=== PATIENT | male | born 1970 | race Caucasian/White ===

== ENCOUNTER 2021-11-17 04:11 | Emergency (ER) | payer SELFPAY ==
--- NOTE | ~2021-11-17 | CT_ITS ---
EXAMINATION: CT abd pelvis lumbar wo con DATE: 11/17/2021 06:26 INDICATION: Right lower quadrant pain. TECHNIQUE: Computed tomography (CT) of the abdomen, pelvis and lumbar spine was performed without int ravenous contrast. The dose-length product was 1428.56 mGy-cm. Automated exposure control and iterative reconstruction technique were employed. COMPARISON: None FINDINGS: Abdomen/pelvis: There is dependent atelectasis. Heart size normal. There are gallstones. The liver, s pleen, pancreas, adrenal glands and kidneys are unremarkable. Bladder is unremarkable. Nonobstructive bowel gas pattern. Normal appendix. No free air or free fluid. Small hiatal hernia. Accessory splenu le noted. No significant vascular abnormality. No lymphadenopathy. Lumbar spine: There is severe multilevel facet hypertrophy as well as ventral osteophyte formation and disc narrowi ng at all lumbar levels creating multilevel central canal and neural foraminal stenosis. There is mil d dextrocurvature of the lumbar spine. There is neural foraminal and central canal stenosis at L1-2 t hrough L5-S1. No acute fracture or traumatic malalignment. IMPRESSION: 1. No acute abnormality of the abdomen, pelvis or lumbar spine. 2: Severe lumbar spondylosis with multilevel neural foraminal and central canal stenosis. 3: Cholelithiasis. 4: Small hiatal hernia. Reviewed, dictated and finalized at location A. IMPRESSION: 1. No acute abnormality of the abdomen, pelvis or lumbar spine. 2: Severe lumbar spondylosis with multilevel neural foraminal and central lisa l stenosis. 3: Cholelithiasis. 4: Small hiatal hernia.
[2021-11-17 04:41] VITALS: BP 166/94; PULSE 71; RESP 17; TEMP 36.5; O2SAT 96
--- NOTE | 2021-11-17 05:15 | ED.GENADULT ---
HPI - General Adult General Chief complaint: Back Pain/Injury Stated complaint: back pain Time Seen by Provider: 11/17/21 05:00 History of Present Illness HPI narrative: the patient is a 51-year-old male with onset of right-sided lower back pain radiating to the right buttocks area into the right flank for the last 2 days, sudden onset, not preceded by any heavy lifting or twisting or turning. No previous history of back pain. The pain radiates to the right flank but is mostly in the right lower back. No hematuria or dysuria urinary urgency or frequency or nausea or vomiting or abdominal pain. No fevers or chills with diaphoresis shortness breast symptoms. He is worried about kidney stones. Only past medical history is congestive heart failure and hypertension. No chest pain or dyspnea. He has chronically edematous lower extremities, more swollen on the right chronically which is not new today. He attributes this to his congestive heart failure; no calf tenderness. Related Data Home Medications Medication Instructions Recorded Confirmed carvedilol 12.5 mg tablet 1 tablet PO BID 11/17/21 11/17/21 furosemide 20 mg tablet 1 tablet PO BID 11/17/21 11/17/21 lisinopril 20 mg tablet 1 tablet PO DAILY 11/17/21 11/17/21 potassium chloride 10 mEq 1 tablet PO DAILY 11/17/21 11/17/21 tablet,extended release(part/cryst) Allergies Allergy/AdvReac Type Severity Reaction Status Date / Time No Known Allergies Allergy Verified 11/17/21 04:40 Review of Systems Review of Systems: All systems reviewed & are unremarkable except as noted in HPI and below Constitutional: Constitutional: Reports no additional constitutional complaints, Denies anorexia, Denies body ache(s), Denies chills, Denies excessive sweating, Denies fatigue, Denies fever(s), Denies frequent falls, Denies headache(s), Denies malaise and Denies poor appetite Eyes: Eyes: Reports no additional eye complaints, Denies blurry vision, Denies change in vision, Denies irritation, Denies itchy eyes and Denies photophobia ENT: Reports system reviewed and no additional complaints, except as documented, Reports Normal hearing present, Denies change in voice, Denies dysphagia, Denies vertigo, Denies dizziness, Denies ear discharge, Denies headache(s), Denies hearing loss, Denies hoarseness, Denies nasal congestion, Denies neck pain, Denies sinus pressure, Denies sore throat and Denies throat swelling Cardiovascular: Cardiovascular: Reports no additional cardiovascular complaints, Denies chest pain, Denies syncope, Denies rapid heart rate, Denies irregular heart rhythm, Reports leg edema, Denies dyspnea and Denies slow heart rate Respiratory: Respiratory: Reports no additional respiratory complaints, Denies cough, Denies dyspnea, Denies stridor and Denies wheezing Gastrointestinal: Gastrointestinal: Reports no additional gastrointestinal complaints, Denies abdominal pain, Denies melena, Denies hematochezia, Denies dysphagia, Denies diarrhea, Denies nausea and Denies vomiting Genitourinary: Genitourinary: Denies hematuria, Denies oliguria, Denies dysuria, Denies flank pain, Denies urinary frequency and Denies urinary urgency Musculoskeletal: Musculoskeletal: Reports no additional musculoskeletal complaints, Denies abnormal gait, Reports back pain, Denies myalgias, Denies arthralgias, Denies joint swelling, Denies limited range of motion, Denies muscle cramps, Denies muscle weakness, Denies neck pain and Denies numbness Integumentary/Breasts: Skin/Breast: Reports system reviewed and no additional complaints, except as docu, Denies breast pain, Denies change in pigmentation, Denies pruritus, Denies erythema and Denies wounds Neurologic: Reports system reviewed and no additional complaints, except as documented, Reports Normal hearing present, Denies Abnormal speech present, Reports abnormal gait, Denies confusion, Denies vertigo, Denies dizziness, Denies syncope, Denies frequent falls, Denie
[2021-11-17 05:30] LABS: Basophils Absolute Auto 0.05 K/mm3 (0.00-0.10); Basophils Percent Auto 0.6 % (0.0-1.0); Eosinophils Absolute Auto 0.37 K/mm3 (0.02-0.50); Eosinophils Percent Auto 4.6 % (1.0-6.0); Hematocrit 51.6 % (40.0-54.0); Hemoglobin 17.2 g/dL (14.0-18.0); Immature Granulocyte Absolute 0.03 K/mm3 (0.00-0.00); Immature Granulocyte Percent A 0.4 % (0.0-0.0); Lymphocytes Absolute Auto 1.46 K/mm3 (1.10-4.50); Lymphocytes Percent Auto 18.3 % (18.0-42.0); Mean Corpuscular HGB Conc 33.3 g/dL (32.0-36.0); Mean Corpuscular Hemoglobin 30.2 pg (27.0-31.0); Mean Corpuscular Volume 90.7 fL (78.0-102.0); Mean Platelet Volume 10.2 fl (8.7-11.0); Monocytes Absolute Auto 0.84 K/mm3 (0.10-0.90); Monocytes Percent Auto 10.5 % (2.0-11.0); Neutrophils Absolute Auto 5.3 K/mm3 (1.7-7.2); Neutrophils Percent Auto 65.6 % (50.0-70.0); Platelet Count Result 205 K/mm3 (150-420); Red Blood Count 5.69 M/mm3 (4.70-6.10); Red Cell Distribution Width 13.1 % (11.6-14.4)
[2021-11-17] MEDS: ACETAMINOPHEN 325 MG TABLET 975 MG PO (05:33)
[2021-11-17] MEDS: MORPHINE SULFATE (*CRX) 4 MG/ML INJ IV PUSH ×2 (05:33→06:59)
[2021-11-17] MEDS: ORPHENADRINE CITRATE 30 MG/ML 2 ML VIAL 60 MG IV PUSH (05:34)
[2021-11-17 05:52] LABS: Alanine Aminotransferase 17 U/L (16-63); Albumin Level 3.1 g/dL (3.4-5.0); Alkaline Phosphatase 143 U/L (46-116); Amylase 49 U/L (25-115); Anion Gap 5 mmol/L (8-16); Aspartate Amino Transferase 20 U/L (15-37); Bilirubin,Total 0.3 mg/dL (0.00-1.00); Calcium 8.4 mg/dL (8.5-10.1); Carbon Dioxide 27 mmol/L (21-32); Chloride 105 mmol/L (98-108); Estimated CRCL calculation 13 ml/min; Estimated Glomerular Filt Rate > 60; Glucose 96 mg/dL (70-99); Lipase 45 U/L (73-393); Potassium 3.9 mmol/L (3.5-5.1); Sodium 137 mmol/L (136-145); Total Protein 7.3 g/dL (6.4-8.2)
[2021-11-17 06:08] LABS: Blood Urea Nitrogen 18 mg/dL (7-18); Osmolality Calculated 285 mOsm/kg (285-295)
[2021-11-17] MEDS: KETOROLAC 30 MG/ML VIAL (*BKC) IV PUSH (06:58)
[2021-11-17 07:03] VITALS: BP 161/96; PULSE 62; RESP 17; O2SAT 98
--- NOTE | 2021-11-17 07:15 | PC.NURSE ---
nurse to nurse report completed with FRANCHESCA Helms
[2021-11-17] MEDS: LACTATED RINGERS 1,000 ML 500 ML IV CONT (08:00)
[2021-11-17 08:54] VITALS: BP 145/96; PULSE 57; RESP 14; TEMP 36.1; O2SAT 97
--- NOTE | 2021-11-17 08:55 | PC.NURSE ---
Confirmed with MISTI Salinas to discharge without obtaining UA
== END 2021-11-17 08:54 | disposition home or self-care (01) ==
PROVIDERS: Emergency Medicine; Emergency Provider Internal Medicine Critical Care Medicine
DX: M54.50 Low back pain, unspecified (principal)
CPT/HCPCS: 36415; 72131; 74176; 80053; 82150; 83690; 85025; 96361; 96374; 96375; 96376; 99284; A9270; J1885; J2270; J2360; J7120

== ENCOUNTER 2022-05-11 16:01 | Emergency (ER) | payer OTHER, SELFPAY ==
[2022-05-11 16:03] VITALS: BP 147/86; PULSE 78; RESP 20; TEMP 36.4; O2SAT 98
--- NOTE | 2022-05-11 16:31 | ED.LOWEXIN ---
HPI - Extremity Injury (Lower) General Chief Complaint: Extremity Injury, Lower Stated Complaint: leg swelling Time Seen by Provider: 05/11/22 16:05 Source: patient, family and RN notes reviewed Mode of arrival: ambulatory Limitations: no limitations History of Present Illness HPI Narrative: leg swelling and recurrent leg ulcers. Onset (ago): week(s) Type of Injury: other (no acute injury) Place: home Severity: mild Severity scale (1-10): 8 Relieving factors: nothing Exacerbating factors: nothing Other symptoms: none Related Data Home Medications Medication Instructions Recorded Confirmed carvedilol 12.5 mg tablet 1 tablet PO BID 11/17/21 05/11/22 furosemide 20 mg tablet 1 tablet PO BID 11/17/21 05/11/22 lisinopril 20 mg tablet 1 tablet PO DAILY 11/17/21 05/11/22 potassium chloride 10 mEq 1 tablet PO DAILY 11/17/21 05/11/22 tablet,extended release(part/cryst) Allergies Allergy/AdvReac Type Severity Reaction Status Date / Time No Known Allergies Allergy Verified 05/11/22 16:15 Review of Systems Review of Systems: All systems reviewed & are unremarkable except as noted in HPI and below Constitutional: Constitutional: Reports no additional constitutional complaints Eyes: Eyes: Reports no additional eye complaints ENT: Reports system reviewed and no additional complaints, except as documented Cardiovascular: Cardiovascular: Reports no additional cardiovascular complaints Respiratory: Respiratory: Reports no additional respiratory complaints Gastrointestinal: Gastrointestinal: Reports no additional gastrointestinal complaints Musculoskeletal: Comments: right leg swelling and stasis ulcer. Integumentary/Breasts: Skin/Breast: Reports system reviewed and no additional complaints, except as docu Neurologic: Reports system reviewed and no additional complaints, except as documented Psychiatric: Psychiatric: Reports no additional psychiatric complaints Endocrine: Endocrine: Reports no additional endocrine complaints Hematologic/Lymphatic: Hematologic/Lymphatic: Reports no additional hematologic/lymphatic complaints Allergic/Immunologic: Allergic/Immunologic: Reports no additional allergic/immunologic complaints PMFSH Past Medical History Medical History Cellulitis Congestive heart failure Hypertension Stasis ulcer Exam Const: General: healthy appearing, no acute distress and well nourished Nutritional Appearance: well nourished Orientation/consciousness: patient oriented x3 Limitations: no limitations HENMT: Head: normal to inspection Ears: external ears normal, TM's normal bilaterally and EAC's normal Face/Nose/Sinus: Normal external nose present, Normal nares present, normal facial exam and sinuses nontender Face and sinus: normal facial exam and sinuses nontender Mouth: Yes Normal oral and palatal mucosa present and Yes moist mucous membranes Teeth and gingiva: dentition normal Throat: posterior oropharynx normal Eyes: Conjunctivae: conjunctivae normal Pupils: Equal, round and reactive pupils present EOM: EOMs intact bilaterally Neck: Neck: normal visual inspection, no lymphadenopathy and no meningeal signs Chest: Chest palpation & inspection: normal inspection of the chest Resp: Effort & Inspection: normal respiratory effort Auscultation: clear to auscultation bilaterally Cardio: Rate: regular rate Rhythm: regular rhythm GI: GI Palp: Yes Soft to palpation and No Tenderness to palpation present (GI) Auscultation: normal bowel sounds : General: Yes bladder normal to palpation and Yes no CVA tenderness Back/Spine/Pelvis: Back: no CVA tenderness Skin: General skin exam: normal color Rashes: no rashes Wounds: no wounds Neuro: General: patient oriented x3, moves all extremities, no meningeal signs, no focal motor deficits and CN's II-XI intact bilaterally Cranial nerves: Yes Equal, round and reactive pupils present a
[2022-05-11] MEDS: cefTRIAXone 1 GM, LIDOCAINE HCL 1% LOCAL INJ 2.1 ML IM (16:44)
[2022-05-11] MEDS: KETOROLAC (*BKC) 60 MG/2 ML VIAL IM (16:45)
[2022-05-11 17:08] LABS: Basophils Absolute Auto 0.05 K/mm3 (0.00-0.10); Basophils Percent Auto 0.6 % (0.0-1.0); Eosinophils Absolute Auto 0.37 K/mm3 (0.02-0.50); Eosinophils Percent Auto 4.7 % (1.0-6.0); Hemoglobin 15.6 g/dL (14.0-18.0); Immature Granulocyte Absolute 0.07 K/mm3 (0.00-0.00); Immature Granulocyte Percent A 0.9 % (0.0-0.0); Lymphocytes Absolute Auto 1.32 K/mm3 (1.10-4.50); Lymphocytes Percent Auto 16.8 % (18.0-42.0); Mean Corpuscular HGB Conc 32.5 g/dL (32.0-36.0); Mean Corpuscular Hemoglobin 29.7 pg (27.0-31.0); Mean Corpuscular Volume 91.4 fL (78.0-102.0); Mean Platelet Volume 9.6 fl (8.7-11.0); Monocytes Absolute Auto 0.99 K/mm3 (0.10-0.90); Monocytes Percent Auto 12.6 % (2.0-11.0); Neutrophils Absolute Auto 5.1 K/mm3 (1.7-7.2); Neutrophils Percent Auto 64.4 % (50.0-70.0); Platelet Count Result 227 K/mm3 (150-420); Red Blood Count 5.25 M/mm3 (4.70-6.10); Red Cell Distribution Width 12.8 % (11.6-14.4); White Blood Count 7.9 K/mm3 (4.8-10.8)
--- NOTE | 2022-05-11 17:10 | PC.NURSE ---
Wound was cleaned with wound cleanser and dressed with 3x4 non-stick telfa dressing.
== END 2022-05-11 17:12 | disposition home or self-care (01) ==
PROVIDERS: Emergency Provider Emergency Medicine; PCP Family Medicine
DX: I83.019 Varicose veins of right lower extremity with ulcer of unspecified site (principal); L97.919 Non-pressure chronic ulcer of unspecified part of right lower leg with unspecified severity; L03.90 Cellulitis, unspecified
CPT/HCPCS: 36415; 85025; 96372; 99284; J0696; J1885

== ENCOUNTER 2022-07-14 20:18 | Emergency (ER) | payer OTHER, SELFPAY ==
[2022-07-14] VITALS (13 sets, daily range): BP systolic 139–177; BP diastolic 64–106; PULSE 63–79; RESP 16–20; TEMP 36.2; O2SAT 98–100
--- NOTE | ~2022-07-14 | CT_ITS ---
EXAMINATION: CT brain wo con DATE: 07/14/2022 21:37 INDICATION: Headache TECHNIQUE: Computed tomography (CT) of the head was performed without intravenous contrast. Sagittal and coronal reconstructions were performed. The mA was adjusted according to patient size. Iterative reconstruction technique was employed. The dose-length product was 681.00 mGy-cm. COMPARISON: None FINDINGS: No acute intracranial hemorrhage, acute infarction or abnormal extra axial fluid collection. Small old lacunar infarct at the head of the right caudate nucleus. There is mild scattered white mat ter hypoattenuation consistent with chronic small vessel ischemic disease. Ventricles are normal and symmetric. No mass/mass effect. Mild mucosal thickening in the right ethmoid and sinus and subtle bu bbly mucus in the right sphenoid sinus. The orbits and mastoid air cells are normal. IMPRESSION: 1. Small old lacunar infarct at the head of the right caudate nucleus. No acute intracranial process. 2. Mild scattered white matter hypoattenuation consistent with chronic small vessel ischemic disease. 3. Bubbly mucus in the right sphenoid sinus which could be seen with acute sinusitis. Reviewed, dictated and finalized at location A. CT MAIL CLERK IMPRESSION: 1. Small old lacunar infarct at the head of the right caudate nucleus. No acute intracranial process. 2. Mild scattered white matter hypoattenuation consistent with chronic small ve ssel ischemic disease. 3. Bubbly mucus in the right sphenoid sinus which could be seen with acute sinu sitis.
--- NOTE | ~2022-07-14 | CT_ITS ---
CT ANGIOGRAM NECK AND HEAD History: Dizziness, ataxia, headache. Technique: Serial spiral axial images through the head and neck were obtained during arterial phase I V injection of 100 cc of Omnipaque 350. 3-D postprocessing and MIP images were then reconstructed on the remote workstation. Dose reduction technique was used on this scan by utilizing automated exposur e control and iterative reconstruction technique. The dose-length product (DLP) was 1223.53 mGy-cm. CTA neck findings: Bilateral vertebral arteries are patent. Bowel common carotid, internal carotid, and external carotid arteries are patent. The proximal right internal carotid artery demonstrates 0% stenosis relative to the normal distal artery lumen diameter. The proximal left internal carotid jagdish ry demonstrates 0% stenosis relative to the normal distal artery lumen diameter. CTA head findings: Distal left vertebral artery terminates as the left PICA, normal variant. Distal r ight vertebral artery is unremarkable. Basilar artery is patent, but very small in caliber. Posterior cerebral arteries are patent, predominantly fed via posterior communicating arteries from the anteri or circulation. Distal internal carotid arteries, middle cerebral arteries, and anterior cerebral arteries are patent . No large vessel occlusion. No stenosis or aneurysm. Impression: No significant abnormality identified. Reviewed, dictated and finalized at location . IFICATIONS CHECKER Impression: No significant abnormality identified.
--- NOTE | 2022-07-14 20:49 | ECG_ITS ---
Measurements Intervals [place] Rate: 67 P: 57 IN: 187 QRS: 27 QRSD: 109 T: 74 QT: 420 QTc: 444 Interpretive Statements SINUS RHYTHM DIFFUSE SUBTLE ST ELEVATION, CONSIDER EARLY REPOLARIZATION, MYOCARDIAL INJURY, PERICARDITIS BORDERLINE ECG NO PREVIOUS ECG AVAILABLE FOR COMPARISON Electronically Signed On 07-16-2022 14:32:00 RESEARCH PROGRAM MANAGER by Tree Sexton M.D.
--- NOTE | 2022-07-14 20:50 | ED.GENADULT ---
HPI - General Adult General Chief complaint: Dizziness Stated complaint: left side of face numb, dizzy, neck hurts Time Seen by Provider: 07/14/22 20:41 History of Present Illness HPI narrative: the patient is a 52-year-old male with a history of back pain, uses a cane for ambulation due to unsteadiness on his feet, hypertension, and congestive heart failure. He presents with onset of left facial numbness, decreased describes decreased sensation, since 5:30 p.m. today. No facial weakness. Did have also the development of ataxia which is worse than usual, as well as dizziness, and a slight headache. The headache is also intermittent. He feels weak and tired. He comes here for evaluation. No motor or sensory deficit in the upper or lower extremity. Related Data Home Medications Medication Instructions Recorded Confirmed carvedilol 12.5 mg tablet 1 tablet PO BID 11/17/21 07/15/22 furosemide 20 mg tablet 1 tablet PO BID 11/17/21 07/15/22 lisinopril 20 mg tablet 1 tablet PO DAILY 11/17/21 07/15/22 potassium chloride 10 mEq 1 tablet PO DAILY 11/17/21 07/15/22 tablet,extended release(part/cryst) Allergies Allergy/AdvReac Type Severity Reaction Status Date / Time No Known Allergies Allergy Verified 07/14/22 20:43 Review of Systems Review of Systems: All systems reviewed & are unremarkable except as noted in HPI and below Constitutional: Constitutional: Reports no additional constitutional complaints, Denies anorexia, Denies body ache(s), Denies chills, Denies excessive sweating, Reports fatigue, Denies fever(s), Denies frequent falls, Denies headache(s), Reports malaise and Denies poor appetite Eyes: Eyes: Reports no additional eye complaints, Denies blurry vision, Denies change in vision, Denies irritation, Denies itchy eyes and Denies photophobia ENT: Reports system reviewed and no additional complaints, except as documented, Reports Normal hearing present, Denies change in voice, Denies dysphagia, Reports dizziness, Denies ear discharge, Denies headache(s), Denies hearing loss, Denies hoarseness, Denies nasal congestion, Denies neck pain, Denies sinus pressure, Denies sore throat and Denies throat swelling Cardiovascular: Cardiovascular: Reports no additional cardiovascular complaints, Denies chest pain, Denies syncope, Denies rapid heart rate, Denies irregular heart rhythm, Denies leg edema, Denies dyspnea and Denies slow heart rate Respiratory: Respiratory: Reports no additional respiratory complaints, Denies cough, Denies dyspnea, Denies stridor and Denies wheezing Gastrointestinal: Gastrointestinal: Reports no additional gastrointestinal complaints, Denies abdominal pain, Denies melena, Denies hematochezia, Denies dysphagia, Denies diarrhea, Denies nausea and Denies vomiting Genitourinary: Genitourinary: Denies hematuria, Denies oliguria, Denies dysuria, Denies flank pain, Denies urinary frequency and Denies urinary urgency Musculoskeletal: Musculoskeletal: Reports no additional musculoskeletal complaints, Denies abnormal gait, Denies back pain, Denies myalgias, Denies arthralgias, Denies joint swelling, Denies limited range of motion, Denies muscle cramps, Denies muscle weakness, Denies neck pain and Denies numbness Integumentary/Breasts: Skin/Breast: Reports system reviewed and no additional complaints, except as docu, Denies breast pain, Denies change in pigmentation, Denies pruritus, Denies erythema and Denies wounds Neurologic: Reports system reviewed and no additional complaints, except as documented, Reports Normal hearing present, Denies Abnormal speech present, Denies abnormal gait, Denies confusion, Denies vertigo, Denies dizziness, Denies syncope, Denies frequent falls, Denies headache(s), Denies focal weakness, Denies numbness and Denies paresthesias Psychiatric: Psychiatric: Reports no additional psychiatric complaints and Denies confusion Endocrine: Endocrine: Reports no additional endocrine complaints, Denies
[2022-07-14 21:11] LABS: Basophils Absolute Auto 0.03 K/mm3 (0.00-0.10); Basophils Percent Auto 0.4 % (0.0-1.0); Eosinophils Absolute Auto 0.34 K/mm3 (0.02-0.50); Eosinophils Percent Auto 4.1 % (1.0-6.0); Hematocrit 48.9 % (40.0-54.0); Hemoglobin 16.3 g/dL (14.0-18.0); Immature Granulocyte Absolute 0.03 K/mm3 (0.00-0.00); Immature Granulocyte Percent A 0.4 % (0.0-0.0); Lymphocytes Absolute Auto 1.32 K/mm3 (1.10-4.50); Lymphocytes Percent Auto 16.1 % (18.0-42.0); Mean Corpuscular HGB Conc 33.3 g/dL (32.0-36.0); Mean Corpuscular Hemoglobin 30.1 pg (27.0-31.0); Mean Corpuscular Volume 90.2 fL (78.0-102.0); Mean Platelet Volume 9.8 fl (8.7-11.0); Monocytes Absolute Auto 0.77 K/mm3 (0.10-0.90); Monocytes Percent Auto 9.4 % (2.0-11.0); Neutrophils Absolute Auto 5.7 K/mm3 (1.7-7.2); Neutrophils Percent Auto 69.6 % (50.0-70.0); Platelet Count Result 204 K/mm3 (150-420); Red Blood Count 5.42 M/mm3 (4.70-6.10); Red Cell Distribution Width 13.2 % (11.6-14.4); White Blood Count 8.2 K/mm3 (4.8-10.8)
[2022-07-14] MEDS: SODIUM CHLORIDE 0.9% IV 1,000 ML 999 ML IV CONT (21:25)
[2022-07-14] MEDS: MECLIZINE HCL 25 MG TABLET 50 MG PO (21:26)
[2022-07-14 21:27] LABS: Alanine Aminotransferase 30 U/L (16-63); Albumin Level 3.3 g/dL (3.4-5.0); Alkaline Phosphatase 143 U/L (46-116); Anion Gap 4 mmol/L (8-16); Aspartate Amino Transferase 20 U/L (15-37); Bilirubin,Total 0.5 mg/dL (0.00-1.00); Blood Urea Nitrogen 13 mg/dL (7-18); CRP 0.5 mg/dL (0.0-0.9); Calcium 8.5 mg/dL (8.5-10.1); Carbon Dioxide 30 mmol/L (21-32); Chloride 103 mmol/L (98-108); Estimated Glomerular Filt Rate > 60; Glucose 94 mg/dL (70-99); Osmolality Calculated 284 mOsm/kg (285-295); Potassium 4.3 mmol/L (3.5-5.1); Sodium 137 mmol/L (136-145); Total Protein 7.8 g/dL (6.4-8.2)
[2022-07-14 22:12] LABS: Erythrocyte Sedimentation Rate 7 mm/hr (0-20)
--- NOTE | 2022-07-14 22:29 | PC.NURSE ---
Pt states that his numbness on his face has almost resolved. Pt states he still feels dizzy but the severity has declined since arrival and medications.
[2022-07-14] MEDS: hydrALAZINE HCL 20 MG/ML VIAL IV PUSH (22:59)
[2022-07-14] MEDS: KETOROLAC 30 MG/ML VIAL (*BKC) IV PUSH (23:01)
--- NOTE | 2022-07-14 23:26 | PC.NURSE ---
Addendum entered by Stephen Elizabeth RN 07/15/22 00:32: Neuro checks were performed and no change in status had occurred. Original Note: Pt rang call light. RN finds pt sitting on stretcher and pt states that after returning from CT that his dizziness and numbness returned. Pt states the dizziness has increased and the whole room is spinning. RN assesses vitals and reports to ERP.
[2022-07-15] VITALS (12 sets, daily range): BP systolic 117–156; BP diastolic 59–89; PULSE 64–80; RESP 18–20; TEMP 36.6; O2SAT 95–99
[2022-07-15 00:19] LABS: SARS-CoV-2 RNA PCR Negative (Negative)
--- NOTE | 2022-07-15 01:35 | PC.NURSE ---
RN calls [facility] to recheck on pt status. Sub Master states has not been able to speak with hospitalist and will return call with new updates.
--- NOTE | 2022-07-15 01:48 | PC.NURSE ---
[facility] Structural Steel Fitter calls stating, Dr. Webb has received pt info and will be looking over the chart to return a call.
== END 2022-07-15 03:57 | disposition short-term general hospital (02) ==
PROVIDERS: Emergency Provider Emergency Medicine; PCP Family Medicine
DX: I16.9 Hypertensive crisis, unspecified (principal); I11.0 Hypertensive heart disease with heart failure; I50.9 Heart failure, unspecified; R42 Dizziness and giddiness; Z20.822 Contact with and (suspected) exposure to COVID-19
CPT/HCPCS: 36415; 70450; 70496; 70498; 80053; 83605; 85025; 85652; 86140; 93005; 96361; 96374; 96375; 99285; A9270; J0360; J1885; J7030; Q9967; U0003; U0005

== ENCOUNTER 2022-07-15 05:04 | Observation (INO) | payer OTHER, SELFPAY ==
[2022-07-15] VITALS (9 sets, daily range): BP systolic 126–169; BP diastolic 70–88; PULSE 55–94; RESP 18–20; TEMP 36.2–36.8; O2SAT 97–100; BMI 49.6
--- NOTE | 2022-07-15 | ECHO_ITS ---
Patient Info Name: Dennis Ramos Age: 52 years : 1970 Gender: Male Ht: 64 in Wt: 289 lbs BSA: 2.51 m2 HR: 60 bpm BP: 155 / 74 mmHg Technical Quality: Good Exam Date: 07/15/2022 1:06 PM Exam Location: [facility] Patient Status: Outpatient Admit Date: 07/15/2022 Staff Ordering Physician: Ricardo Ruiz MD Muffle Worker: Sharath Jimenez, CHIKA, RT Attending Provider: Priscilla Henry MD Exam Type: CA echo dop bubble study w con Study Info Indications G45.8 - Other transient cerebral ischemic attacks and related syndromes Complete two-dimentional, color flow and Doppler transthoracic echocardiogram is performed with agitated saline and with contrast to opacify the left ventricle and to improve the delineation of the left ventricle endocardial borders. Summary 1. Definity contrast administered improved wall motion interpretation. 2. Left ventricular chamber dimension is normal. 3. Left ventricular systolic function is normal, estimated at 60-65%. 4. There is mild concentric increased left ventricular wall thickness. 5. The left ventricular diastolic function is grade I diastolic dysfunction. 6. E/e' 8 is minimally elevated. 7. Left atrial chamber dimension is mildly enlarged. Left Ventricle E/e' 8 is minimally elevated. Definity contrast administered improved wall motion interpretation. Left ventricular chamber dimension is normal. Left ventricular systolic function is normal, estimated at 60-65%. There is mild concentric increased left ventricular wall thickness. The left ventricular diastolic function is grade I diastolic dysfunction. Right Ventricle Right ventricular chamber dimension is normal. Right ventricular systolic function is normal. Left Atria Left atrial chamber dimension is mildly enlarged. Right Atria Right atrial chamber dimension is normal. Atrial Septum Agitated saline injection with and without valsalva maneuver opacified right side cardiac chambers without shunt to left side cardiac chambers. Intact interatrial septum visualized by 2D and agitated saline imaging. Aortic Valve The aortic valve is trileaflet. There is no aortic valve stenosis. There is no aortic valve regurgitation. Pulmonic Valve There is no pulmonic regurgitation. Mitral Valve There is no mitral valve stenosis. There is no mitral valve regurgitation. Tricuspid Valve There is no tricuspid valve regurgitation. Pericardium/Pleural There is no pericardial effusion. Inferior Vena Cava Normal inferior vena cava with >50% collapse upon inspiration consistent with normal right atrial pressure, 5 mmHg. Aorta The aortic root size at the sinus of Valsalva is normal. Left Ventricular Outflow Tract Name Value Normal LVOT Doppler LVOT Peak Gradient 3 mmHg LVOT Mean Gradient 2 mmHg LVOT VTI 21 cm LVOT VTI/AV VTI Ratio 0.7 Mitral Valve Name Value Normal MV Doppler
--- NOTE | ~2022-07-15 | XR_ITS ---
EXAMINATION: XR chest 2V DATE: 07/15/2022 08:11 INDICATION: Stroke. Vomiting. TECHNIQUE: Frontal and lateral views of the chest were obtained. COMPARISON: CT abdomen and pelvis 11/17/2021 FINDINGS: There is chronic mild elevation of right hemidiaphragm. There is no pneumonia, pleural effu jennifer, or pneumothorax. The heart size is normal. IMPRESSION: 1. No acute cardiopulmonary disease. Reviewed, dictated and finalized at location A. E TABLE OPERATOR
--- NOTE | ~2022-07-15 | MR_ITS ---
EXAMINATION: MR brain/brain stem wo con DATE: 07/15/2022 08:04 INDICATION: Stroke. TECHNIQUE: Magnetic resonance imaging (MRI) of the brain and brainstem was performed without intraven ous contrast. COMPARISON: Head CT 07/14/2022 FINDINGS: There are old lacunar infarcts in right caudate nucleus. There are scattered areas of nonsp ecific increased T2-weighted signal intensity in the cerebral white matter and lizett. There is no intr acranial hemorrhage, acute infarction, or abnormal intracranial mass lesion. The ventricles are morro l in size. The orbits are normal. There is mucosal thickening in the paranasal sinuses. The mastoid a ir cells are normal. IMPRESSION: 1. Old lacunar infarcts in right caudate nucleus. 2. Mild nonspecific cerebral white matter disease and pontine disease, which likely represents chroni c small vessel ischemic disease. Reviewed, dictated and finalized at location A. ER CHASER IMPRESSION: 1. Old lacunar infarcts in right caudate nucleus. 2. Mild nonspecific cerebral white matter disease and pontine disease, which hu corona represents chronic small vessel ischemic disease.
--- NOTE | 2022-07-15 04:47 | ADMGEN ---
This patient, Dennis Ramos, was admitted to Medical Room 242-01. Patient/family oriented to hospital policies and general routines including ID bracelet, bed and alarms, visiting hours, pain management, procedures, bathroom and other care routines, personal items, smoking policy, room service/diet, and visiting hours. Information on how to activate the Rapid Response Team has been discussed. Patient/Family are encouraged to report perceived risks to care and to ask questions if they do not understand what they are told or what they should do.
[2022-07-15 05:48] LABS: Basophils Percent Auto 0.5 % (0.2-1.2); Eosinophils Absolute Auto 0.3 K/mm3 (0-0.3); Eosinophils Percent Auto 4.2 % (0-4.4); Hematocrit 48.8 % (42.0-52.0); Hemoglobin 16.2 g/dL (14.0-18.0); Immature Granulocyte Absolute 0.02 K/mm3 (0.00-0.031); Immature Granulocyte Percent A 0.2 % (0-0.5); Lymphocytes Absolute Auto 1.11 K/mm3 (0.9-3.2); Lymphocytes Percent Auto 13.8 % (18.3-44.2); Mean Corpuscular HGB Conc 33.2 g/dl (32-36); Mean Corpuscular Volume 90.4 fl (80-100); Monocytes Absolute Auto 0.8 K/mm3 (0.1-0.6); Monocytes Percent Auto 10.2 % (2.6-8.5); Neutrophils Absolute Auto 5.7 K/mm3 (1.3-6.7); Neutrophils Percent Auto 71.1 % (45.5-73.1); Platelet Count Result 197 k/mm3 (150-375); Red Cell Distribution Width 13.5 % (11.5-14.5)
[2022-07-15 06:00] LABS: INR 1.1; Partial Thromboplastin Time 31.6 SECONDS (22.3-36.8); Prothrombin Time 13.7 Seconds (11.1-14.7)
[2022-07-15 06:08] LABS: Anion Gap 4 mmol/L (8-16); Blood Urea Nitrogen 13 mg/dL (9-20); Calcium 8.3 mg/dL (8.4-10.2); Carbon Dioxide 25 mmol/L (22-30); Chloride 103 mmol/L (98-107); Estimated CRCL calculation 101 ml/min; Estimated Glomerular Filt Rate > 60; Glucose 102 mg/dL (65-110); Potassium 3.7 mmol/L (3.4-5.0); Sodium 132 mmol/L (137-145)
[2022-07-15] MEDS: ONDANSETRON INJ 4 MG/2 ML VIAL IV PUSH (08:51)
--- NOTE | 2022-07-15 10:24 | PM.IMHP ---
H&P: HPI History of Present Illness Date/Time: 07/15/22 10:25 Chief Complaint: Left sided facial numbness Narrative: 52yo male with CHF and HTN here for left facial numbness, n/v and dizziness. Patient developed acute onset of left facial numbness without weakness, room spinning dizziness and nausea with vomiting about 5 hours before presenting to the emergency room yesterday. No new medications. No sick contacts. He has never had this before. Denies any numbness or tingling in his hands or feet. No focal weakness in his arms or legs. He does have diffuse weakness and trouble walking due to this. He denies any blurry vision or diplopia. He has a posterior headache and neck pain. No chest pain or palpitations. He has shortness of breath with exertion but he has had this off and on for while. He does not check his blood pressure at home. His blood pressure was well controlled with current medications about a month ago when he was at his doctor's office. He does walk with a cane due to chronic low back pain and ?narrowing of the spine?. He also has bilateral knee osteoarthritis. He did have difficulty walking and felt off balance with the onset of his symptoms but he has not fallen. No history of stroke that he is aware of. No abdominal pain. No dysuria or hematuria. There has been no change in his chronic low back pain. No diarrhea. He presented to emergency room for evaluation. In the ED, his vital signs were stable. BP did climb to 173/102. COVID was negative. CBC and CMP unremarkable. HCT showing small old lacunar CVA right caudate but no acute intracerebral findings. He did have bubbly mucus in the right sphenoid sinus; consider sinusitis. Head and neck CTA showed no significant abnormalities. He was admitted for further care. Review of Systems Review of Systems: All systems reviewed & are unremarkable except as noted in HPI and below PMFSH Past Medical History Medical History (Updated 07/15/22 @ 10:44 by Ricardo Ruiz MD) Cellulitis Congestive heart failure Hx of completed stroke Hypertension Stasis ulcer Surgical History Surgical History (Updated 07/15/22 @ 10:36 by Ricardo Ruiz MD) Toe amputee Family History Family History Father Acute myocardial infarction History of blood clots Diabetes mellitus Mother Acute myocardial infarction Chronic obstructive pulmonary disease Social History Social History (Updated 07/15/22 @ 10:37 by Ricardo Ruiz MD) Social History: Patient lives alone. He is unemployed. He is trying to get disability. He is a full code. He nominates his sister Cheryl to be the individual would make medical decisions for him if he is unable. He denies alcohol, tobacco or drug use. He does have a history of cocaine use in the past. Smoking status: Never smoker Alcohol intake: never Substance use: never Lack of Transportation: No Lack of Food: Never True Current Housing: I Have Housing Concerned About Future Housing: No Difficulty Paying Gas/Electric Bills: No Difficulty Paying for Meds: No Currently Unemployed: No Education: Trade/Vocational Certificate Difficulty w/ Childcare or Family Care: No Spiritual care concerns: No Meds Home Medications and Allergies Home Medications Medication Instructions Recorded Confirmed Type carvedilol 12.5 mg tablet 1 tablet PO BID 11/17/21 07/15/22 History furosemide 20 mg tablet 1 tablet PO BID 11/17/21 07/15/22 History lisinopril 20 mg tablet 1 tablet PO DAILY 11/17/21 07/15/22 History potassium chloride 10 mEq 1 tablet PO DAILY 11/17/21 07/15/22 History tablet,extended release(part/cryst) Allergies Allergy/AdvReac Type Severity Reaction Status Date / Time No Known Allergies Allergy Verified 07/14/22 20:43 Vital Signs Vital Signs - 24 hr 07/15/22 04:53 07/15/22 05:19 07/15/22 04:40 Temperature 97.2 F
[2022-07-15] MEDS: POTASSIUM CHLORIDE 10 MEQ TABLET.ER PO (10:29)
[2022-07-15] MEDS: ENOXAPARIN 40 MG/0.4 ML SYRINGE SUB-Q (10:29)
[2022-07-15] MEDS: FUROSEMIDE 20 MG TABLET PO ×2 (10:29→17:57)
[2022-07-15] MEDS: ASPIRIN 81 MG ENTERIC TABLET PO (10:30)
[2022-07-15] MEDS: carvediloL 12.5 MG TABLET PO ×2 (10:30→17:57)
[2022-07-15] MEDS: lisinopriL 20 MG TABLET PO (10:30)
--- NOTE | 2022-07-15 11:43 | WPDNEURCNPN ---
Assessment and Plan Assessment and plan (1) Dizziness: Code(s): R42 - Dizziness and giddiness Status: Acute (2) Ataxia: Code(s): R27.0 - Ataxia, unspecified Status: Acute Plan Ongoing complaint of dizziness with somewhat dysconjugate eye movements at this particular time and with a negative MRI of the brain I will obtain the acetylcholine receptor antibodies to rule out the possibility of myasthenia before we consider the cranial nerves involvement secondary to possible diabetes or ischemia Consult date: 07/15/22 HPI: Dennis Ramos is a 52 year old male Admitted to the hospital through the emergency room for the complains of numbness of the left side of the face in addition to dizziness and neck discomfort patient has been using a cane for ambulation due to unsteadiness on his feet in addition he has ongoing history of hypertension and congestive heart failure he has been taking multiple medications which include carvedilol 12.5 mg twice a day furosemide 20 mg twice a day lisinopril 20 mg daily and potassium supplements. Initial evaluation in the emergency room documented that he is a never smoker never alcohol intaker, Corrine his examination documented him to have ataxia he obviously he was not a candidate for tPA initial CT scan of the head was normal so as the CT angiogram MRI of the brain and brainstem documented him to have the old lacunar infarct in the right caudate nucleus with nonspecific white matter changes his initial blood pressure in the emergency room was 169/88 and he has been admitted to the hospital for the complaints of dizziness with ataxia in addition to ongoing history of hypertension congestive heart failure also he has been started on baby aspirin daily Review of Systems Review of Systems: All systems reviewed & are unremarkable except as noted in HPI and below PMFSH Past Medical History Medical History (Updated 07/15/22 @ 10:44 by Ricardo Ruiz MD) Cellulitis Congestive heart failure Hx of completed stroke Hypertension Stasis ulcer Surgical History Surgical History (Updated 07/15/22 @ 10:36 by Ricardo Ruiz MD) Toe amputee Family History Family History Father Acute myocardial infarction History of blood clots Diabetes mellitus Mother Acute myocardial infarction Chronic obstructive pulmonary disease Social History Social History (Updated 07/15/22 @ 10:37 by Ricardo Ruiz MD) Social History: Patient lives alone. He is unemployed. He is trying to get disability. He is a full code. He nominates his sister Cheryl to be the individual would make medical decisions for him if he is unable. He denies alcohol, tobacco or drug use. He does have a history of cocaine use in the past. Smoking status: Never smoker Alcohol intake: never Substance use: never Lack of Transportation: No Lack of Food: Never True Current Housing: I Have Housing Concerned About Future Housing: No Difficulty Paying Gas/Electric Bills: No Difficulty Paying for Meds: No Currently Unemployed: No Education: Trade/Vocational Certificate Difficulty w/ Childcare or Family Care: No Spiritual care concerns: No Meds Home Medications and Allergies Home Medications Medication Instructions Recorded Confirmed Type carvedilol 12.5 mg tablet 1 tablet PO BID 11/17/21 07/15/22 History furosemide 20 mg tablet 1 tablet PO BID 11/17/21 07/15/22 History lisinopril 20 mg tablet 1 tablet PO DAILY 11/17/21 07/15/22 History potassium chloride 10 mEq 1 tablet PO DAILY 11/17/21 07/15/22 History tablet,extended release(part/cryst) Allergies Allergy/AdvReac Type Severity Reaction Status Date / Time No Known Allergies Allergy Verified 07/14/22 20:43 Vital Signs Vital Signs - 24 hr 07/15/22 04:53 07/15/22 05:19 07/15/22 04:40 Temperature 36.2 C L Pulse Rate 66 63 Respiratory Rate 18 Blood Pr
[2022-07-15 12:19] LABS: Thyroid Stimulating Hormone Reflex 0.967 uIU/mL (0.465-4.68)
[2022-07-15 12:22] LABS: Folic Acid 14.8 ng/mL (2.76->20)
[2022-07-15] MEDS: ATORVASTATIN 40 MG TABLET PO (12:39)
[2022-07-15] MEDS: MECLIZINE HCL 12.5 MG TABLET PO ×2 (12:39→17:57)
[2022-07-15 13:26] LABS: HIV 1/2 Ab P24 Ag Result Negative (Negative)
[2022-07-15] MEDS: PERFLUTREN LIPID MICROSPHERES 1.5 ML VIAL DILUTED TO 10 ML TOTAL VOLUME IV PUSH (13:33)
--- NOTE | 2022-07-15 13:33 | IVDEFINITY ---
Prior to administration of IV Definity the patient was educated on the risks and benefits of the imaging enhancing agent including potential adverse side effects. The patient verbalized understanding. Allergies were verified. No exclusion criteria were identified and at least one of the following inclusion criteria were met: 1) physician request, 2) patient technically difficult to image (per the [place] [employer] guidelines of two or more segments not discernable within the apical view), or 3) questionable left ventricular function. ?
[2022-07-15 15:18] LABS: Rapid Plasma Reagin Non-Reactive (NonReactive)
[2022-07-15 17:26] LABS: Barbiturate Screen Urine Negative (Negative); Benzodiazepines Screen Urine Negative (Negative)
[2022-07-15 17:32] LABS: Cannabinoid Screen Urine Negative (Negative); Cocaine Screen Urine Negative (Negative); Methadone Screen Urine Negative (Negative); Opiate Screen Urine Negative (Negative); Phencyclidine Screen Urine Negative (Negative)
[2022-07-15 18:34] LABS: Amphetamine Screen Urine Positive (Negative)
[2022-07-16] VITALS (14 sets, daily range): BP systolic 126–152; BP diastolic 64–87; PULSE 53–68; RESP 16–20; TEMP 36.2–36.7; O2SAT 96–99
[2022-07-16 05:11] LABS: Chloride 107 mmol/L (98-107)
[2022-07-16 05:33] LABS: Anion Gap 4 mmol/L (8-16); Blood Urea Nitrogen 10 mg/dL (9-20); Calcium 8.3 mg/dL (8.4-10.2); Carbon Dioxide 27 mmol/L (22-30); Estimated CRCL calculation 118 ml/min; Estimated Glomerular Filt Rate > 60; Glucose 88 mg/dL (65-110); Potassium 3.7 mmol/L (3.4-5.0); Sodium 138 mmol/L (137-145)
[2022-07-16] MEDS: lisinopriL 20 MG TABLET PO (08:24)
[2022-07-16] MEDS: carvediloL 12.5 MG TABLET PO ×2 (08:24→16:41)
[2022-07-16] MEDS: ENOXAPARIN 40 MG/0.4 ML SYRINGE SUB-Q (08:24)
[2022-07-16] MEDS: ATORVASTATIN 40 MG TABLET PO (08:25)
[2022-07-16] MEDS: ASPIRIN 81 MG ENTERIC TABLET PO (08:25)
[2022-07-16] MEDS: POTASSIUM CHLORIDE 10 MEQ TABLET.ER PO (08:26)
[2022-07-16] MEDS: FUROSEMIDE 20 MG TABLET PO ×2 (08:26→16:41)
--- NOTE | 2022-07-16 08:32 | PM.DS ---
DS: Admitting Diagnosis Discharge Date 07/17/2022 Admitting Diagnosis Facial numbness and dizziness DS: Discharge Diagnosis Discharge Diagnosis (1) Dizziness: Code(s): R42 - Dizziness and giddiness Status: Inactive (2) Ataxia: Code(s): R27.0 - Ataxia, unspecified Status: Inactive (3) Hypertension: Code(s): I10 - Essential (primary) hypertension Status: Acute (4) Congestive heart failure: Code(s): I50.9 - Heart failure, unspecified Status: Acute (5) Nausea & vomiting: Code(s): R11.2 - Nausea with vomiting, unspecified Status: Acute (6) Hx of completed stroke: Code(s): Z86.73 - Personal history of transient ischemic attack (TIA), and cerebral infarction without residual deficits Status: Acute Plan Patient has been admitted to [address] [place] [address] on telemetry. Telemetry thus far has not revealed any significant dysrhythmias. He does have decreased sensation to upper part of his face. He has other neurologic signs for cerebellar insufficiency. He does have a history of cocaine use. Will check a urine drug screen. Will check also TSH, B12, folate, RPR and HIV. Order meclizine p.r.n.. Will consider scheduling this if continued to have nausea, vomiting and dizziness. Zofran is available as needed for nausea. EKG was reviewed personally and showing normal sinus rhythm with early repolarization. Official cardiology reading is not available yet. Chest x-ray was reviewed personally and was clear. No evidence of CHF or cardiomegaly. Radiology agrees with this interpretation. Will start physical and occupational therapy. Will add baby aspirin given his history of stroke. Resume his antihypertensive medications and adjust these as needed to control his blood pressure. Neurology has been consulted. Will check echocardiogram with bubble. Will start him off on a full liquid diet and advance as tolerated. Will add Lipitor as well given his medical condition and the finding of previous stroke. Continue telemetry. Further recommendation as course dictates. DS: Summary Hospital Course Hospital Course: 52yo male with CHF and HTN here for left facial numbness, n/v and dizziness.? Patient developed acute onset of left facial numbness without weakness, room spinning dizziness and nausea with vomiting about 5 hours before presenting to the emergency room yesterday.? No new medications.? No sick contacts.? He has never had this before.? Denies any numbness or tingling in his hands or feet.? No focal weakness in his arms or legs.? He does have diffuse weakness and trouble walking due to this.? He denies any blurry vision or diplopia.? He has a posterior headache and neck pain.? No chest pain or palpitations.? He has shortness of breath with exertion but he has had this off and on for while.? He does not check his blood pressure at home.? His blood pressure was well controlled with current medications about a month ago when he was at his doctor's office.? He does walk with a cane due to chronic low back pain and ?narrowing of the spine?.? He also has bilateral knee osteoarthritis.? He did have difficulty walking and felt off balance with the onset of his symptoms but he has not fallen.? No history of stroke that he is aware of.? No abdominal pain.? No dysuria or hematuria.? There has been no change in his chronic low back pain.? No diarrhea.? He presented to emergency room for evaluation. In the ED, his vital signs were stable. BP did climb to 173/102. COVID was negative. CBC and CMP unremarkable. HCT showing small old lacunar CVA right caudate but no acute intracerebral findings. He did have bubbly mucus in the right sphenoid sinus; consider sinusitis.? Head and neck CTA showed no significant abnormalities. He was admitted for further care. Neurology was consulted and noted that the brain was negative and they will follow-up outpatient for possible myasthenia gravis. His symptoms res
--- NOTE | 2022-07-16 12:59 | WPDNEUROPN ---
Subjective Date/time seen: 07/16/22 12:59 Interval history: remains stable, routine blood studies are normal including the chemistry toxicology screen is positive for amphetamine and acetyl choline receptor antibodies are pending Objective Data Vital Signs Vital Signs: Vital Signs - 24 hr 07/15/22 13:25 07/15/22 16:00 07/15/22 18:46 Temperature 36.3 C L 36.6 C Pulse Rate 55 L 67 62 Respiratory Rate 20 18 Blood Pressure 139/70 126/75 Pulse Oximetry 97 100 Oxygen Delivery 07/15/22 23:28 07/15/22 20:00 07/16/22 00:00 Temperature 36.8 C Pulse Rate 65 62 53 L Respiratory Rate 20 Blood Pressure 134/71 Pulse Oximetry 99 Oxygen Delivery 07/16/22 04:00 07/16/22 06:00 07/16/22 08:24 Temperature 36.4 C Pulse Rate 54 L 56 L 62 Respiratory Rate 20 Blood Pressure 152/85 H Pulse Oximetry 99 Oxygen Delivery 07/16/22 08:00 07/16/22 10:15 07/16/22 11:35 Temperature 36.7 C Pulse Rate 63 68 Respiratory Rate 16 Blood Pressure 130/71 Pulse Oximetry 98 Oxygen Delivery Room Air Intake/Output Intake/Output: Intake & Output 07/13/22 07/14/22 07/15/22 07/16/22 23:59 23:59 23:59 23:59 Intake Total 990 1290 Output Total 1200 400 Balance -210 890 Meds/Results Medications: Active Medications Generic Name Dose Route Start Last Admin Trade Name Freq PRN Reason Stop Dose Admin Acetaminophen 650 mg 07/15/22 05:03 Acetaminophen 325 Mg Tablet PO Q4H PRN Mild Pain (1-3) or Fever Hydrocodone Bitart/Acetaminophen 1 tab 07/15/22 05:03 Hydrocodone/Acetaminophen (*Crx) 5-325 Mg Tablet PO Q4H PRN Moderate Pain (4-6) Al Hydrox/Mg Hydrox/Simethicone 30 ml 07/15/22 05:03 Mag Hydrox/Al Hydrox/Simeth 30 Ml Udc PO QID PRN Dyspepsia Aspirin 81 mg 07/15/22 09:00 07/16/22 08:25 Aspirin 81 Mg Enteric Tablet PO 81 mg QAM AMANDA Administration Atorvastatin Calcium 40 mg 07/15/22 10:55 07/16/22 08:25 Atorvastatin 40 Mg Tablet PO 40 mg DAILY AMANDA Administration Carvedilol 12.5 mg 07/15/22 09:00 07/16/22 08:24 Carvedilol 12.5 Mg Tablet PO 12.5 mg BID AMANDA Administration Enoxaparin Sodium 40 mg 07/15/22 09:00 07/16/22 08:24 Enoxaparin 40 Mg/0.4 Ml Syringe SUB-Q 40 mg DAILY AMANDA Administration Furosemide 20 mg 07/15/22 09:00 07/16/22 08:26 Furosemide 20 Mg Tablet PO 20 mg BID AMANDA Administration Lisinopril 20 mg 07/15/22 09:00 07/16/22 08:24 Lisinopril 20 Mg Tablet PO 20 mg DAILY AMANDA Administration Meclizine HCl 12.5 mg 07/15/22 10:52 07/15/22 17:57 Meclizine Hcl 12.5 Mg Tablet PO 12.5 mg QID PRN Administration Dizziness Ondansetron HCl 4 mg 07/15/22 05:03 07/15/22 08:51 Ondansetron Inj 4 Mg/2 Ml Vial IV PUSH 4 mg Q6H PRN Administration Nausea And Vomiting Potassium Chloride 10 meq 07/15/22 09:00 07/16/22 08:26 Potassium Chloride 10 Meq Tablet.Er PO 10 meq DAILY AMANDA Administration Radiology Results: ITS Impressions Brain MRI 07/15/22 08:09 IMPRESSION: 1. Old lacunar infarcts in right caudate nucleus. 2. Mild nonspecific cerebral white matter disease and pontine disease, which likely represents chronic small vessel ischemic disease. Chest X-Ray 07/15/22 08:13 IMPRESSION: 1. No acute cardiopulmonary disease. Labs Labs: Laboratory Results - last 24 hr 07/15/22 07/15/22 07/15/22 10:39 10:39 10:39 Sodium Potassium Chloride Carbon Dioxide Anion Gap BUN Creatinine Estim Creat Clear Calc Estimated GFR Glucose Calcium Vitamin B12 294.0 Urine Opiates Screen Urine Methadone Screen Ur Barbiturates Screen Ur Phencyclidine Scrn Ur Amphetamine Screen U Benzodiazepines Scrn Urine Cocaine Screen U Cannabinoids Screen RPR Non-reactive HIV 1&2 Ab/P24 Ag 4thGn Negative 07/15/22 07/16/22 16:57 04:26 Sodium 138 Potassium 3.
--- NOTE | 2022-07-16 16:39 | PC.NURSE ---
Patient continues to experience intense dizzy spells, diaphoretic issues and new onset incontinence of bowel. Agrees to stay one more night per MD recommendation.
[2022-07-17 01:38] VITALS: BP 154/87; PULSE 59; RESP 20; TEMP 36.6; O2SAT 98
[2022-07-17 06:00] VITALS: BP 153/68; PULSE 65; RESP 20; TEMP 37.1; O2SAT 98
--- NOTE | 2022-07-17 06:18 | PC.NURSE ---
Encouraged pt to sit side of bed, to increase activity. Pt refuses, states I can't . Took away dinner tray at 2200. Poor po intake. Slept most of shift. Sister called nursing station and states that she will pick pt up for discharge some time tomorrow Instructed his sister to call after 0900 for update
--- NOTE | 2022-07-17 07:54 | PM.IMPN ---
Progress Note: A&P Assessment and Plan (1) Dizziness: Code(s): R42 - Dizziness and giddiness Status: Inactive Assessment and Plan: Resolving, improved with meclizine Suspect BPPV (2) Ataxia: Code(s): R27.0 - Ataxia, unspecified Status: Inactive Assessment and Plan: Improving, continue PT outpatient (3) Hypertension: Code(s): I10 - Essential (primary) hypertension Status: Acute Assessment and Plan: Stable, slightly elevated, would recommend increasing lisinopril to 30 mg at discharge (4) Congestive heart failure: Code(s): I50.9 - Heart failure, unspecified Status: Acute Assessment and Plan: Grade 1 diastolic dysfunction with an EF of 60-65% noted on the echo from July 15 (5) Nausea & vomiting: Code(s): R11.2 - Nausea with vomiting, unspecified Status: Acute Assessment and Plan: Resolved (6) Hx of completed stroke: Code(s): Z86.73 - Personal history of transient ischemic attack (TIA), and cerebral infarction without residual deficits Status: Acute Plan DVT prophylaxis with lovenox GI prophylaxis not indicated Code status full code Subjective Date/time seen: 07/16/22 07:54 Interval history: No overnight events noted. No chest pain or shortness of breath. No nausea, vomiting or diarrhea. No fevers or chills. Symptoms improving but not resolved. Still somewhat dizzy and off balance. Review of Systems Review of Systems: 12 point review of systems was assessed and was negative except as noted in the HPI Exam Narrative: General: No acute distress, alert and oriented per baseline HEENT: Atraumatic, normocephalic, mucous membranes moist CV: Regular rate and rhythm, S1, S2 Lungs: Clear to auscultation bilaterally, no rales or crackles noted, no wheezes, good air entry Abdomen: Soft, nontender, nondistended Extremities: Normal to inspection Skin: No rashes noted, no lesions or wounds seen Psych: Euthymic, normal affect Objective Data Vital Signs Vital Signs: Vital Signs - 24 hr 07/16/22 08:24 07/16/22 08:00 07/16/22 10:15 Temperature 98.0 F Pulse Rate 62 63 68 Respiratory Rate 16 Blood Pressure 130/71 Pulse Oximetry 98 Oxygen Delivery 07/16/22 11:35 07/16/22 12:00 07/16/22 12:50 Temperature 97.1 F L Pulse Rate 59 L 57 L Respiratory Rate 18 Blood Pressure 126/64 Pulse Oximetry 96 Oxygen Delivery Room Air 07/16/22 12:55 07/16/22 13:00 07/16/22 14:00 Temperature 97.1 F L Pulse Rate 62 66 57 L Respiratory Rate 18 18 18 Blood Pressure 133/77 129/70 126/64 Pulse Oximetry 98 98 96 Oxygen Delivery 07/16/22 16:41 07/16/22 18:00 07/16/22 21:56 Temperature 97.1 F L 97.6 F Pulse Rate 60 62 58 L Respiratory Rate 18 20 Blood Pressure 133/77 149/87 H Pulse Oximetry 98 98 Oxygen Delivery 07/17/22 01:38 Temperature 97.8 F Pulse Rate 59 L Respiratory Rate 20 Blood Pressure 154/87 H Pulse Oximetry 98 Oxygen Delivery Intake/Output Intake/Output: Intake & Output 07/14/22 07/15/22 07/16/22 07/17/22 23:59 23:59 23:59 23:59 Intake Total 990 2280 Output Total 1200 2050 400 Balance -210 230 -400 Meds/Results Medications: Active Medications Generic Name Dose Route Start Last Admin Trade Name Freq PRN Reason Stop Dose Admin Acetaminophen 650 mg 07/15/22 05:03 Acetaminophen 325 Mg Tablet PO Q4H PRN Mild Pain (1-3) or Fever Hydrocodone Bitart/Acetaminophen 1 tab 07/15/22 05:03 Hydrocodone/Acetaminophen (*Crx) 5-325 Mg Tablet PO Q4H PRN Moderate Pain (4-6) Al Hydrox/Mg Hydrox/Simethicone 30 ml 07/15/22 05:03 Mag Hydrox/Al Hydrox/Simeth 30 Ml Udc PO QID PRN Dyspepsia Aspirin 81 mg 07/15/22 09:00 07/16/22 08:25 Aspirin 81 Mg Enteric Tablet PO 81 mg QAM AMANDA Administration Atorvastatin Calcium 40 mg 07/15/22 10:55 07/16/22 08:25 Atorvastatin 40 Mg T
[2022-07-17] MEDS: lisinopriL 20 MG TABLET PO (08:18)
[2022-07-17] MEDS: POTASSIUM CHLORIDE 10 MEQ TABLET.ER PO (08:18)
[2022-07-17 08:19] VITALS: PULSE 67
[2022-07-17] MEDS: carvediloL 12.5 MG TABLET PO (08:19)
[2022-07-17] MEDS: ATORVASTATIN 40 MG TABLET PO (08:19)
[2022-07-17] MEDS: ASPIRIN 81 MG ENTERIC TABLET PO (08:19)
[2022-07-17] MEDS: FUROSEMIDE 20 MG TABLET PO (08:20)
[2022-07-17 10:00] VITALS: BP 133/68; PULSE 62; RESP 18; TEMP 36.5; O2SAT 97
[2022-07-17] MEDS: MECLIZINE HCL 12.5 MG TABLET PO (11:00)
[2022-07-24 00:06] LABS: Acetylchol Receptor Binding Ab <0.30 nmol/L
== END 2022-07-17 11:29 | disposition home or self-care (01) ==
PROVIDERS: Internal Medicine; Psychiatry & Neurology Neurology; Admitting Provider Internal Medicine; Visit Provider Student in an Organized Health Care Education/Training Program
DX: R42 Dizziness and giddiness (principal); I11.0 Hypertensive heart disease with heart failure; I50.9 Heart failure, unspecified; R20.0 Anesthesia of skin; R11.2 Nausea with vomiting, unspecified; Z86.73 Personal history of transient ischemic attack (TIA), and cerebral infarction without residual deficits; R51.9 Headache, unspecified; Z11.4 Encounter for screening for human immunodeficiency virus [HIV]; Z20.822 Contact with and (suspected) exposure to COVID-19; R90.82 White matter disease, unspecified; M54.2 Cervicalgia; G89.29 Other chronic pain; M54.50 Low back pain, unspecified; M17.0 Bilateral primary osteoarthritis of knee; Z89.429 Acquired absence of other toe(s), unspecified side; F14.11 Cocaine abuse, in remission; Z79.899 Other long term (current) drug therapy; G45.8 Other transient cerebral ischemic attacks and related syndromes
CPT/HCPCS: 36415; 70551; 71046; 80048; 80307; 82607; 82746; 84238; 84443; 85025; 85610; 85730; 86592; 86703; 96374; 96375; 97162; 97165; A9270; C8929; G0378; G0379; G0432; J1650; J2405; Q9957

== ENCOUNTER 2022-11-14 17:02 | Outpatient (RCR) | payer OTHER, SELFPAY ==
--- NOTE | 2022-11-17 07:35 | OPREHPOC ---
Outpatient Therapy Plan of Care This is a Multidisciplinary Plan of Care that may contain components documented by all disciplines (PT, OT, and ST.) PT Problem 1 PT Problem #1 Knowledge Deficit PT Goal 1 Goal Patient to demonstrate independence with HEP Target Visit 10 PT Problem 2 PT Problem #2 Impaired Strength PT Goal 1 Goal Patient to demonstrate 4+/5 strength of B LE to improve ability to navigate steps at PLOF Target Visit 10 PT Problem 3 PT Problem #3 Impaired Functional Mobil PT Goal 1 Goal 1. Patient to complete 5TSTS in 15 seconds to decrease risk of falls 2. Patient to complete 2 min walk test in order to improve community and house hold ambulation Target Visit 10
--- NOTE | 2022-11-17 07:35 | PTOPEVAL1 ---
Assessment and note entered by Adela Buckley DPT Evaluation Information Assessment Status Evaluation Diagnosis weakness, decreased balance Onset 11/06/22 Subjective Information Patient reports about 3 months ago he got really dizzy at home and felt like he was having a stroke . [facility] and was then transferred to [facility] where they told him he had signs of old strokes and white matter disease. He reports since then he has had LE weakness, decreased balance, difficulty performing house hold tasks and difficulty walking. He uses a rollator at home. He reports since symptoms started he has noticed improvement and less dizziness. He reports he has 4 steps to enter the house with one railing. He reports he has care givers coming in to help. He reports he is still driving. Prior to onset he had B knee pain but was independent. Assessment PT Clinical Summary Patient is a 52 year old male who presents to PT with LE weakness and decreased balance. Patient demonstrates decreased B LE strength, impaired functional balance testing and impaired gait mechanics impairing his ability to ambulate and complete house hold tasks as well as puts him at high risk for falls. He would benefit from skilled PT to address impairments and return to [facility]. Plan of Care Interventions Gait Training,Hot Pack/Cold Pack,Neuro Re- education,Patient/Caregiver Educati,Therapeutic Activities,Therapeutic Exercise,Self-Care/Home Management PT Services Indicated Yes Treatment Frequency and 2x weekly for 10 visits Duration These treatments will address the objective and functional deficits as defined above. The patient will be advanced safely and appropriately in order for the patient to progress towards his/her prior level of function. Additional exercises will be introduced and as well as a comprehensive home exercise program upon discharge, if needed, ?to ensure carryover of functional gains achieved in the clinic. This treatment plan has been reviewed and agreement upon by the patient.
--- NOTE | 2022-12-29 13:59 | OPREHPOC ---
Outpatient Therapy Plan of Care This is a Multidisciplinary Plan of Care that may contain components documented by all disciplines (PT, OT, and ST.) PT Problem 1 PT Problem #1 Knowledge Deficit PT Goal 1 Goal Patient to demonstrate independence with HEP Target Visit 10 Progress Not Met PT Problem 2 PT Problem #2 Impaired Strength PT Goal 1 Goal Patient to demonstrate 4+/5 strength of B LE to improve ability to navigate steps at PLOF Target Visit 10 Progress Not Met PT Problem 3 PT Problem #3 Impaired Functional Mobil PT Goal 1 Goal 1. Patient to complete 5TSTS in 15 seconds to decrease risk of falls 2. Patient to complete 2 min walk test in order to improve community and house hold ambulation Target Visit 10 Progress Not Met
== END 2022-11-14 20:00 | disposition home or self-care (01) ==
LOC: CHSPT 17:02
PROVIDERS: PCP Family Medicine; Visit Provider Physician Assistant
DX: R53.1 Weakness (principal)
CPT/HCPCS: 97110; 97162

== ENCOUNTER 2023-06-16 14:20 | Outpatient (RCR) | payer OTHER, SELFPAY ==
--- NOTE | 2023-06-16 15:31 | OPREHPOC ---
Outpatient Therapy Plan of Care This is a Multidisciplinary Plan of Care that may contain components documented by all disciplines (PT, OT, and ST.) PT Problem 1 PT Problem #1 Knowledge Deficit PT Goal 1 Goal The patient will be independent in a home exercise program to continue after discharge. Target Visit 20 PT Problem 2 PT Problem #2 Pain PT Goal 1 Goal The patient will report no greater than 4/10 knee pain with daily activities. Target Visit 20 PT Problem 3 PT Problem #3 Impaired Range of Motion PT Goal 1 Goal The patient will demonstrate at least 10-120 degrees of bilateral knee AROM improve gait and stair negotiation. Target Visit 20 PT Problem 4 PT Problem #4 Impaired Gait PT Goal 1 Goal The patient will demonstrate the ability to ambulate 600 feet with 3/10 or less bilateral knee pain during the 6 minute walk test. Target Visit 20 PT Problem 5 PT Problem #5 Impaired Strength PT Goal 1 Goal The patient will demonstrate improved hip flexion, hip abduction, and bilateral knee extension strength to 4/5 to go up and down stairs. Target Visit 20
--- NOTE | 2023-06-16 15:31 | PTOPEVAL1 ---
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 He started using a cane about one year ago due to difficulty walking then he started using a walker occasionally about 6 months ago after he had a possible stroke. His doctor also diagnosed him with white brain matter disease. He had cortisone injections in each knee about a week ago that helped his pain quite a bit. He will see a client specialist on 06/23/23 as well because he has bad ankles too. He has 4 steps up onto his deck that leads into his house. He has to take the stairs one at a time going up and uses the hand rail and his cane. To get down the stairs, he has to go backwards and use the handrail and cane. He is limited with sitting, standing, or walking for long periods. Reported Pain Level Pain Score 3,3: Self Report Assessment PT Clinical Summary Dennis Ramos presents with bilateral knee pain. He had injections in them on 06/09/23 and that has helped his pain. He has difficulty with walking, stairs, prolonged sitting, and prolonged standing. He objectively demonstrates decreased and painful bilateral knee AROM, decreased knee and hip strength, impaired balance, impaired gait, and poor knee alignment. He will benefit from skilled PT to address these limitations. Plan of Care Interventions Electrical Stimulation,Hot Pack/Cold Pack,Neuro Re -education,Patient/Caregiver Educati,Therapeutic Activities,Therapeutic Exercise PT Services Indicated Yes Treatment Frequency and 3 times a week for 10 visits Duration These treatments will address the objective and functional deficits as defined above. The patient will be advanced safely and appropriately in order for the patient to progress towards his/her prior level of function. Additional exercises will be introduced and as well as a comprehensive home exercise program upon discharge, if needed, ?to ensure carryover of functional gains achieved in the clinic. This treatment plan has been reviewed and agreement upon by the patient.
--- NOTE | 2023-06-18 09:19 | PCPTNOTE ---
patient is a no call/no show for PT today.
--- NOTE | 2023-06-19 16:37 | PCPTNOTE ---
Cancelled session today. Patient's spouse reports is it too hard for him to get out today.
--- NOTE | 2023-06-24 13:07 | PCPTNOTE ---
Patient cancelled session today due to illness.
--- NOTE | 2023-06-26 16:08 | PCPTNOTE ---
Patient cancelled session today. Pt reports he is still sick.
--- NOTE | 2024-02-03 10:21 | PCPTNOTE ---
Pt only completed 2 skilled PT visits and did not return. He is discharged. -Khloe Bland, PT
== END 2023-06-22 16:15 | disposition home or self-care (01) ==
LOC: CHSPT 14:20
PROVIDERS: PCP Family Medicine; Visit Provider Physician Assistant
DX: M25.561 Pain in right knee (principal); M25.562 Pain in left knee
CPT/HCPCS: 97110; 97161

== ENCOUNTER 2023-10-22 15:29 | Emergency (ER) | payer OTHER, SELFPAY ==
--- NOTE | ~2023-10-22 | XR_ITS ---
EXAMINATION: XR hip RT min 3V w AP pelvis DATE: 10/22/2023 16:06 INDICATION: Right hip pain TECHNIQUE: Anteroposterior view of the pelvis and anteroposterior and frog-leg lateral views of the r ight hip were obtained. COMPARISON: None. FINDINGS: Alignment is normal. No fracture. Right supra-acetabular bone island. Mild to moderate right and mode rate left hip osteoarthritis. Mild bilateral sacroiliac osteoarthritis. Transitional sacralized lumba r L5 segment. IMPRESSION: 1. Mild to moderate right and moderate left hip osteoarthritis. No acute osseous abnormality. Reviewed, dictated and finalized at location A. IMPRESSION: 1. Mild to moderate right and moderate left hip osteoarthritis. No acute osseou s abnormality.
[2023-10-22] MEDS: KETOROLAC (*BKC) 60 MG/2 ML VIAL IM (15:49)
[2023-10-22] MEDS: cefTRIAXone 1 GM, LIDOCAINE HCL 1% LOCAL INJ 2.1 ML IM (15:50)
[2023-10-22] MEDS: NEOMYCIN/POLYMYXIN/BACITRACIN OINTMENT PACKET 1 PACKET TOPICAL (15:50)
[2023-10-22 15:56] VITALS: BP 118/68; PULSE 85; RESP 20; TEMP 37.2; O2SAT 96
--- NOTE | 2023-10-22 16:40 | ED.SKABFB ---
HPI - Skin/Abscess/Foreign Bdy General Chief complaint: Skin/Abscess/Foreign Body Stated complaint: leg infection. Time Seen by Provider: 10/22/23 15:36 Source: patient and family Mode of arrival: ambulatory Limitations: no limitations History of Present Illness HPI narrative: this is a 53-year-old male with a history of CHF hypertension presents with a lesion to his right lower leg on the lateral aspect that has some yellow discharge with warm and tender to touch and also having right hip pain. Patient has chronic venous stasis and appears to have a skin lesion approximately 2.5cm in diameter. There is no fever chills no nausea vomiting no chest pain no shortness of breath. complaint: abscess/boil Onset (ago): week(s) Severity: moderate Severity scale (1-10): 5 Related Data Home Medications Medication Instructions Recorded Confirmed carvedilol 12.5 mg tablet 1 tablet PO BID 11/17/21 10/22/23 furosemide 20 mg tablet 1 tablet PO BID 11/17/21 10/22/23 lisinopril 20 mg tablet 1 tablet PO DAILY 11/17/21 10/22/23 potassium chloride 10 mEq 1 tablet PO DAILY 11/17/21 10/22/23 tablet,extended release(part/cryst) Allergies Allergy/AdvReac Type Severity Reaction Status Date / Time No Known Allergies Allergy Verified 10/22/23 16:45 Review of Systems Review of Systems: All systems reviewed & are unremarkable except as noted in HPI and below PMFSH Past Medical History Medical History Cellulitis Congestive heart failure Hx of completed stroke Hypertension Stasis ulcer Surgical History Surgical History Toe amputee Family History Family History Father Acute myocardial infarction History of blood clots Diabetes mellitus Mother Acute myocardial infarction Chronic obstructive pulmonary disease Social History Social History Social History: Patient lives alone. He is unemployed. He is trying to get disability. He is a full code. He nominates his sister Cheryl to be the individual would make medical decisions for him if he is unable. He denies alcohol, tobacco or drug use. He does have a history of cocaine use in the past. Smoking status: Never smoker Alcohol intake: never Substance use: never Lack of Transportation: No Lack of Food: Never True Current Housing: I Have Housing Concerned About Future Housing: No Difficulty Paying Gas/Electric Bills: No Difficulty Paying for Meds: No Currently Unemployed: No Education: Trade/Vocational Certificate Difficulty w/ Childcare or Family Care: No Spiritual care concerns: No Exam Const: General: healthy appearing, no acute distress and alert Nutritional Appearance: well nourished and obese Orientation/consciousness: patient oriented x3 Limitations: no limitations Neck: Neck: normal visual inspection Chest: Chest palpation & inspection: normal inspection of the chest Resp: Effort & Inspection: normal respiratory effort Auscultation: clear to auscultation bilaterally Cardio: Rate: regular rate Rhythm: regular rhythm GI: GI Palp: Yes Soft to palpation Auscultation: normal bowel sounds Skin: Wounds: wounds noted Other: 2.5cm skin lesion right lower extremity lateral aspect Extrem: General: edema Course Course Emergency Course: patient had x-ray of his right hip and pelvis which shows osteoarthritis with no acute abnormalities no fractures no dislocation. Patient received IM ceftriaxone 1g and triple antibiotic ointment was placed on the wound. Vital Signs Vital signs: Vital Signs Temperature 37.2 C 10/22/23 15:56 Pulse Rate 85 10/22/23 15:56 Respiratory Rate 20 10/22/23 15:56 Blood Pressure 118/68 10/22/23 15:56 Pulse Oximetry 96 10/22/23 15:56 Oxygen Delivery Room
[2023-10-22 16:55] VITALS: BP 161/98; PULSE 80; RESP 20; TEMP 36.9; O2SAT 98
== END 2023-10-22 16:55 | disposition home or self-care (01) ==
PROVIDERS: Emergency Provider Emergency Medicine; PCP Family Medicine
DX: L02.415 Cutaneous abscess of right lower limb (principal); L03.115 Cellulitis of right lower limb; I11.0 Hypertensive heart disease with heart failure; I50.9 Heart failure, unspecified; Z86.73 Personal history of transient ischemic attack (TIA), and cerebral infarction without residual deficits
CPT/HCPCS: 73502; 96372; 99283; J0696; J1885

== ENCOUNTER 2024-01-11 14:52 | Outpatient (CLI) | payer OTHER, SELFPAY ==
--- NOTE | ~2024-01-11 | US_ITS ---
ULTRASOUND ANKLE BRACHIAL INDEX Ordering provider: Keren De La Cruz History: . Venous stasis of both lower extremities/rt calf ulcer . Comparison: None. FINDINGS: Right brachial systolic blood pressure: 96 mmHg Left brachial systolic blood pressure: 110 mmHg Right ankle systolic blood pressure: 162 mmHg Left ankle systolic blood pressure: 145 mmHg Right ankle/arm index (DEVIKA): 1.61 Left ankle/arm index (DEVIKA): 1.36 Note regarding DEVIKA: --Normal= 1.0 or slightly greater. --Claudication (moderate stenosis or occlusive state)= 0.6 to 0.9. --Rest pain (severe occlusive states)= 0.5 or less. TBI on the right side is 1.4-5 and on the left 1.47 IMPRESSION: Normal DEVIKA Reviewed, dictated and finalized at location A. IMPRESSION: Normal DEVIKA
== END 2024-01-11 14:53 | disposition home or self-care (01) ==
PROVIDERS: PCP Family Medicine
DX: I87.8 Other specified disorders of veins (principal); L97.212 Non-pressure chronic ulcer of right calf with fat layer exposed
CPT/HCPCS: 93922

== ENCOUNTER 2025-02-14 12:30 | Inpatient (IN) | payer OTHER, SELFPAY ==
[2025-02-14] VITALS (10 sets, daily range): BP systolic 90–114; BP diastolic 46–74; PULSE 58–81; RESP 16–18; TEMP 36.4–36.6; O2SAT 16–99; BMI 38.1
--- NOTE | ~2025-02-14 | US_ITS ---
EXAMINATION: US venous doppler LE RT, 02/16/2025 9:55 CDT HISTORY: Edema/ erythema Comparison: None Technique: Parker-scale and color Doppler images were attempted of the lower saphenofemoral junction, common femoral vein,superficial femoral vein, proximal deep femoral vein, proximal deep femoral vein, popliteal vein and posterior tibial veins. Findings: Deep Venous System:Normal flow, augmentation and compressibility. No echogenic thrombus identified. The contralateral saphenofemoral junction appears unremarkable. Superficial Venous SystemNo superficial thrombophlebitis. Soft tissues: Soft tissues are unremarkable. Impression: Negative for DVT. Reviewed, dictated and finalized at location A. Impression: Negative for DVT.
[2025-02-14 13:05] LABS: Hematocrit 48.4 % (40.0-54.0); Hemoglobin 15.8 g/dL (14.0-18.0); Immature Granulocyte Percent A 0.8 % (0.0-0.0); Lymphocytes Absolute Auto 0.91 K/mm3 (1.10-4.50); Mean Corpuscular HGB Conc 32.6 g/dL (32-36); Mean Corpuscular Hemoglobin 29.3 pg (27.0-31.0); Mean Corpuscular Volume 89.6 fL (78.0-102.0); Nucleated Red Blood Cells Absolute Auto 0.00 K/mm3 (0.00-0.00); Nucleated Red Blood Cells Perc 0.0 % (0-0.0); Platelet Count Result 180 K/mm3 (150-420); Red Blood Count 5.40 M/mm3 (4.70-6.10); White Blood Count 16.5 K/mm3 (4.8-10.8)
[2025-02-14 13:21] LABS: Alanine Aminotransferase 13 U/L (6-50); Albumin Level 3.7 g/dL (3.5-5.1); Alkaline Phosphatase 113 U/L (38-126); Anion Gap 8 mmol/L (4-12); Aspartate Amino Transferase 17 U/L (17-59); Bilirubin,Total 0.9 mg/dL (0.2-1.3); Blood Urea Nitrogen 22 mg/dL (9-20); CRP > 9.0 mg/dL (<1.0); Calcium 9.3 mg/dL (8.4-10.2); Carbon Dioxide 23 mmol/L (22-30); Chloride 107 mmol/L (98-107); Estimated CRCL calculation 63 ml/min; Estimated Glomerular Filt Rate 46; Glucose 102 mg/dL (65-110); Osmolality Calculated 289 mOsm/kg (285-295); Potassium 4.2 mmol/L (3.4-5.0); Sodium 138 mmol/L (137-145); Total Protein 7.4 g/dL (6.3-8.2)
--- OUTSIDE RECORDS SUMMARY | 2025-02-14 13:49 | XMS_ITS | Encounter Summary ---
Author Organization [facility] Address [address] [place] [address] Care Team Providers Care Mail Teller Name Role Phone Ollie Gonzales MD Primary Care Provider Elvin Traore MD Unavailable Encounter Details Date Type Department Care Team (Late st Contact Info) Description 03/03/2024 [employer] Message Enc [facility] eld [address] [place] [address] Elvin Traore MD [address] [facility], [address] [place] [address] Referral Social History Tobacco Use Types Packs/Day Years Used Date Smoking Tobacco: Never Smokeless Tobacco: Never Alcohol Use Standard Drinks/Week Comments Yes 0 (1 standard drink = 0.6 oz pur e alcohol) Rarely OASIS D0700: Social Isolation Answer Da te Recorded Frequency of experiencing loneliness or isolatio n Sometimes 01/11/2024 OASIS A1250: Transportation Answer Date Recorded Lack of Transportation (Medical) Yes 01/11/2024 Lack of Transportation (Non-Medical) Yes 01/11/2024 Patient Unable or Declines to Respond No 01/11/2024 OASIS B1300: Health Literacy Answer Joe e Recorded Frequency of needing help to read materials from doctor or pharmacy Never 01/11/2024 Humiliation, Afraid, Rape, and Kick questionnair e Answer Date Recorded Within the last year, have y ou been afraid of your partner or ex-partner? No 08/10/2020 Within the last year, have y ou been humiliated or emotionally abused in other ways by your partner or ex-partner? No Within the last year, have y ou been kicked, hit, slapped, or otherwise physically hurt by your partner or ex-partner? No 08/10/2020 Within the last year, have y ou been raped or forced to have any kind of sexual activity by your partner or ex-partner? No 08/10/2020 Social Connection and Isolat ion Panel [NHANES] Answer Date Recorded In a typical week, how many times do you talk on the phone with family, friends, or neighbors? More than three times a week 08/10/2020 How often do you get togethe r with friends or relatives? More than three times a week 08/10/2020 How often do you attend chur ch or catholic services? Never 08/10/2020 Do you belong to any clubs o r organizations such as samaritan groups, unions, fraternal or athletic groups, or school groups? No 08/10/2020 How often do you attend meet ings of the clubs or organizations you belong to? Never 08/10/2020 Marital Status Not on file 08/10/2020 Overall Financial Resource Strain (CARDIA) Answe r Date Recorded How hard is it for you to pa y for the very basics like food, housing, medical care, and heating? Somewhat hard 08/10/2020 [facility]ational Stress Questionnaire Answer Date Recorded Do you feel stress - tense, restless, nervous, or anxious, or unable to sleep at night because your mind is troubled all the time - these days? Not at all 08/10/2020 Exercise Vital Sign Answer Date Recorde d On average, how many days pe r week do you engage in moderate to strenuous exercise (like a brisk walk)? 0 days Minutes of Exercise per Session Not on file 08/10/2020 Hunger Vital Sign Answer Date Recorded Within the past 12 months, y ou worried that your food would run out before you got the money to buy more. Never true 08/11/19 21 Within the past 12 months, t he food you bought just didn't last and you didn't have money to get more. Never true 08/10/2020 PRAPARE - Transportation Answer Date Re corded In the past 12 months, has l ack of transportation kept you from medical appointments or from getting medications? No 10/2020 In the past 12 months, has l ack of transportation kept you from meetings, work, or from getting things needed for daily living? 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 Answer Date of Assessment Author Status No 08/12/2020 10:58 AM CHEMICAL PUMPER Acti ve * Do you have serious difficulty walking or climbing stairs? Answer Date of Assessment Author Status No 08/12/2020 10:58 AM Bhavana Rivera RN Active * Do you have difficulty dressing or bathing? Answer Date of Assessment Author Status No 08/12/2020 10:58 AM Bhavana Rivera RN Active * Because of a physical, mental, or emotional condition, do you have difficulty doing errands alone such as visiting a doctor's office or shopping? Answer Date of Assessment Author Status No 08/12/2020 10:58 AM Bhavana Rivera RN Active documented as of this encounter Mental Status * Because of a physical, mental, or emotional condition, do you have serious difficulty concentrating, remembering, or making decisions? Answer Entry Date Author Status No 08/12/2020 10:58 AM Bhavana Rivera RN Active documented in this encounter Plan of Treatment Not on file documented as of this encounter Visit Diagnoses Not on filedocumented in this encounter Care Teams Mail Teller Relationship Specialty Start Date End Date Ollie Gonzales MD [address] [place] [phone] PCP - General FAMILY PRACTICE 08/10/20 Elvin Traore MD [address] [place] [address] Consulting Physician INTERNAL MEDICINE 01/05/24 5 documented as of this encounter
--- OUTSIDE RECORDS SUMMARY | 2025-02-14 13:49 | XMS_ITS | Clinical Summary ---
Author Organization [facility] Address [address] [place] [address] Care Team Providers Care Design Maker Name Role Phone Ollie Gonzales MD Primary Care Provider Allergies No known active allergies Medications carvedilol 12.5 MG tabletIndications :Abnormalities of heart beat,Hypertension Take 1 tablet (12.5 mg total) by mouth 2 (two) times daily. 180 tablet 1 1 Active lisinopril 20 MG tabletIndications :Hypertension Take 2 tablets (40 mg total) by mouth daily. Indications: High Blood Pressure 90 tablet 1 1 Active FUROSEMIDE 20 MG tabletIndications :Diuretic Therapy Take 1 tablet by mouth once daily 90 tablet 1 Active ASPIRIN LOW DOSE 81 MG tabletIndications :Platelet Aggregation Prophylaxis Take 1 tablet (81 mg total) by mouth daily. Indications: Treatment to Reduce Platelet Aggregation not taking 3 Active potassium chloride CR (KLOR-CON M) 10 MEQ tabletIndications :potassium supplement Take 1 tablet (10 mEq total) by mouth daily. Indications: potassium supplement 3 Active Compression Bandages (PROFORE) MiscIndications:B ilateral edema of lower extremity,Varicos e veins of bilateral lower extremities with other complications,Chr onic venous insufficiency 4 Units by Does not apply route daily. Double layer compression wrap 4 each 8 4 Active amLODIPine (NORVASC) 5 MG tabletIndications :Hypertension Take 1 tablet (5 mg total) by mouth daily. Indications: High Blood Pressure 30 tablet 6 4 Active Active Problems Problem Noted Date Diagnosed Date Lymphedema 04/27/2024 Varicose veins of bilateral lower extremities with other complications 02/09/2024 Primary osteoarthritis of left knee 06/11/2023 Primary osteoarthritis of right knee 06/11/2023 Bilateral edema of lower extremity 06/11/2023 Chronic venous insufficiency 06/11/2023 Diastolic congestive heart failure ([facility]) 08/30/2020 HTN (hypertension) Obesity Resolved Problems Problem Noted Date Diagnosed Date Resolved Date Cardiomyopathy ([facility]) 08/30/2020 03/21/2024 New onset of congestive hear t failure ([facility]) 08/10/2020 08/12/2020 Dyspnea on exertion 08/10/2020 08/13/19 Family History Medical History Relation Comments Heart Attack Brother Diabetes Father Heart Attack Father Heart Attack Mother Lung Cancer Mother Relation Status Comments Brother Father (Age 60's) Mother (Age ~63 years) Social History Tobacco Use Types Packs/Day Years Used Date Smoking Tobacco: Never Passive Smoke Exposure: Never Smokeless Tobacco: Never Tobacco Cessation:Counseling Given: Not Answered Alcohol Use Standard Drinks/Week Comments Yes 0 (1 standard drink = 0.6 oz pur e alcohol) Rarely OASIS D0700: Social Isolation Answer Da te Recorded Frequency of experiencing loneliness or isolatio n Rarely 04/26/2024 OASIS A1250: Transportation Answer Date Recorded Lack of Transportation (Medical) Yes 04/26/2024 Lack of Transportation (Non-Medical) Yes 04/26/2024 Patient Unable or Declines to Respond No 04/26/2024 OASIS B1300: Health Literacy Answer Joe e Recorded Frequency of needing help to read materials from doctor or pharmacy Never 04/26/2024 Humiliation, Afraid, Rape, and Kick questionnair e [...] often do you attend chur ch or restorationism services? Never 08/10/2020 Do you belong to any clubs o r organizations such as mormon groups, unions, fraternal or athletic groups, or [...] medical care, and heating? 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 Gender Identity Not on file Sexual Orientation Not on file Last Filed Vital Signs Vital Sign Reading Time Taken Comments Blood Pressure 138/81 10/25/2024 3:38 PM CDT Pulse 75 10/25/2024 3:38 PM CDT Temperature 36.6 C (97.8 F) 04/26/2024 4:20 PM WOOD PATTERNMAKER Respiratory Rate 16 10/25/2024 3:38 PM CDT Oxygen Saturation 97% 10/25/2024 3:38 PM CDT Inhaled Oxygen Concentration - - Weight 127.9 kg (282 lb) 10/25/2024 3:38 PM CDT Height 175.3 cm (5' 9) 10/25/2024 3:38 PM CDT Body Mass Index 41.64 10/25/2024 3:38 PM CDT Plan of Treatment Health Maintenance Due Date Last Done Comments Colorectal Cancer Screening Colonoscopy (10 Years) 1971 Annual Physical 1974 Hepatitis C 1989 DTaP, Tdap and Td Vaccines ( 1 - Tdap) 1990 Hepatitis B Vaccines (1 of 3 - 19+ 3-dose series) 1990 Pneumococcal Vaccine: 50+ Ye ars (1 of 2 - PCV) 1990 Zoster Vaccines (1 of 2) 2021 COVID-19 Vaccine (1 - 2023-2 5 season) 2025 Meningococcal B Vaccine Aged Out No l onger eligible based on patient's age to complete this topic Meningococcal Vaccine Aged Out No gertrude sonny eligible based on patient's age to complete this topic RSV Immunizations Under 20 Months Aged Out No longer eligible based on patient's age to complete this topic Insurance [employer] Advance Directives * Full Code (Latest Code Status on File) Date Activated Date Inactivated Comments 03/07/2024 7:38 PM * Full Code Date Activated Date Inactivated Comments 01/12/2024 9:42 AM 03/07/2024 7:38 PM * Full Code Date Activated Date Inactivated Comments 08/10/2020 3:11 PM 08/12/2020 2:08 PM Care Teams Design Maker Relationship Specialty Start Date End Date Ollie Gonzales MD [address] [place] [phone] PCP - General FAMILY PRACTICE 08/10/20
--- OUTSIDE RECORDS SUMMARY | 2025-02-14 13:49 | XMS_ITS | Clinical Summary ---
Author Organization [facility] Medical Office Building B Address [address] [place] [address] Care Team Providers Care Med Surg Nurse Name Role Phone Ollie Gonzales MD Primary Care Provider +- [phone] Allergies No known active allergies Medications atorvastatin (LIPITOR) 40 mg tablet Take 1 tablet (40 mg total) by mouth daily 09/25/2022 Active carvediloL (COREG) 12.5 mg tablet Take 1 tablet (12.5 mg total) by mouth 2 (two) times a day 10/19/2022 Active furosemide (LASIX) 20 mg tablet Take 1 tablet (20 mg total) by mouth daily 12/11/2020 Active lisinopriL (PRINIVIL,ZESTR IL) 20 mg tablet Take 2 tablets (40 mg total) by mouth daily 09/18/2020 Active meclizine (ANTIVERT) 25 mg tablet Take 1 tablet (25 mg total) by mouth 3 (three) times a day 09/25/2022 Active potassium chloride ER 10 mEq CR tablet Take 1 tablet/capsu le (10 mEq total) by mouth daily 12/11/2020 Active Active Problems Problem Noted Date Diagnosed Date Vertigo 10/30/2022 White matter disease 10/30/2022 Medical History Medical History Date Comments Stroke (HCC) Hypertension Family History Medical History Relation Name Comments Cancer Mother Hypertension Mother Relation Name Status Comments Mother Social History Tobacco Use Types Packs/Day Years Used Date Smoking Tobacco: Never Smokeless Tobacco: Never Tobacco Cessation:Counseling Given: Not Answered Personal Safety Answer Date Recorded Getting School Help Needed Not on file 06/14 Sex and Gender Information Value Date Recorded Sex Assigned at Not on file 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 Gender Identity Not on file Sexual Orientation Not on file Obstetrics History Last Filed Vital Signs Vital Sign Reading Time Taken Comments Blood Pressure 183/91 10/30/2022 9:08 AM CDT Pulse 83 10/30/2022 9:08 AM CDT Temperature - - Respiratory Rate - - Oxygen Saturation 97% 10/30/2022 9:08 AM CDT Inhaled Oxygen Concentration - - Weight 137 kg (302 lb) 10/30/2022 9:08 AM CDT Height 177.8 cm (5' 10) 10/30/2022 9:08 AM CDT Body Mass Index 43.33 10/30/2022 9:08 AM CDT Plan of Treatment Health Maintenance Due Date Last Done Comments Colon Cancer Screening-Colonoscopy 1971 Depression Screening 1971 Hepatitis C Screening 1971 Prostate Cancer Screening-PSA 1971 DTaP/Tdap/Td Vaccine (1 - Tdap) 1982 Hepatitis B Screening 1989 Regular Well Visit/Exam 18-64 1989 Zoster Vaccine (1 of 2) 2021 Influenza Vaccine (#1) 2025 Pneumococcal vaccine <65 Aged Out No longer eligible based on patient's age to complete this topic Insurance [facility] Care Teams Med Surg Nurse Relationship Specialty Start Date End Date Ollie Gonzales MD PCP - General Family Medicine 07/30/22
[2025-02-14] MEDS: VANCOMYCIN 1,500 MG/NS 500 ML 1,500 MG/500 ML BAG 333.33 MG IVPB (14:04)
--- OUTSIDE RECORDS SUMMARY | 2025-02-14 14:13 | XMS_ITS | Encounter Summary ---
Author Organization [facility] Address [address] [place] [address] Care Team Providers Care Machinist Helper Name Role Phone Ollie Gonzales MD Primary Care Provider Elvin Traore MD Unavailable Encounter Details Date Type Department Care Team (Late st Contact Info) Description 03/03/2024 004 Technologies Message Enc [facility] eld [address] [place] [address] Elvin Traore MD [address] [facility], [address] [place] [address] Referral Social History Tobacco Use [...] often do you attend chur ch or scientology services? Never 08/10/2020 Do you belong to any clubs o r organizations such as evangelical groups, unions, fraternal or athletic groups, or [...] medical care, and heating? 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 Answer Date of Assessment Author Status No 08/12/2020 10:58 AM WALLET ASSEMBLER Acti ve * Do you have serious [...] on filedocumented in this encounter Care Teams Machinist Helper Relationship Specialty Start Date End Date Ollie Gonzales MD [address] [place] [phone] PCP - General FAMILY PRACTICE 08/10/20 Elvin Traore MD [address] [place] [address] Consulting Physician INTERNAL MEDICINE 01/05/24 5 documented as of this encounter
--- OUTSIDE RECORDS SUMMARY | 2025-02-14 14:13 | XMS_ITS | Clinical Summary ---
Author Organization [facility] Address [address] [place] [address] Care Team Providers Care Cavity Pump Operator Name Role Phone Ollie Gonzales MD Primary [...] venous insufficiency 06/11/2023 Diastolic congestive heart failure ([facility]) 08/30/2020 HTN (hypertension) Obesity Resolved Problems Problem Noted Date Diagnosed Date Resolved Date Cardiomyopathy ([facility]) 08/30/2020 03/21/2024 New onset of congestive hear t failure ([facility]) 08/10/2020 08/12/2020 Dyspnea on exertion 08/10/2020 08/13/19 [...] often do you attend chur ch or zoroastrian services? Never 08/10/2020 Do you belong to any clubs o r organizations such as denominational groups, unions, fraternal or athletic groups, or [...] medical care, and heating? 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
--- OUTSIDE RECORDS SUMMARY | 2025-02-14 14:13 | XMS_ITS | Clinical Summary ---
Author Organization 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
--- NOTE | 2025-02-14 15:09 | ED_ITS ---
HPI - General Adult General Chief complaint: Extremity Injury, Lower Stated complaint: right lower leg redness. Time Seen by Provider: 02/14/25 12:39 Source: patient Mode of arrival: ambulatory Limitations: no limitations History of Present Illness HPI narrative: 54-year-old with a history of hypertension, recurrent cellulitis to his right lower extremity presents to the ER with complaints of increased redness, swelling of right leg. He denies any fever. Patient states that he has a chronic wound on lateral aspect lower leg. He noticed redness going all the way up to his knee joint. Onset (ago): week(s) (1) Radiation: extremity Severity: similar to prior episodes Severity scale (1-10): 6 Quality: aching Pain Consistency: constant Relieving factors: none Exacerbating factors: none Associated symptoms: denies other symptoms Related Data Home Medications ?Medication ?Instructions ?Recorded ?Confirmed ?Last Taken ?Type carvedilol 12.5 mg tablet 1 tablet PO BID 11/17/21 Unknown History furosemide 20 mg tablet 1 tablet PO BID 11/17/21 Unknown History lisinopril 20 mg tablet 1 tablet PO DAILY 11/17/21 0 10/22/23 Unknown History potassium chloride 10 mEq 1 tablet PO DAILY 11/17/21 0 10/22/23 Unknown History tablet,extended release(part/cryst) Allergies Allergy/AdvReac Type Severity Reaction Status Date / Time No Known Allergies Allergy Verified 02/14/25 12:37 Review of Systems 2 Review of Systems: All systems reviewed & are unremarkable except as noted in HPI and below Constitutional: Constitutional: Reports no additional constitutional complaints Eyes: Eyes: Reports no additional eye complaints ENT: Reports system reviewed and no additional complaints, except as documented Cardiovascular: Cardiovascular: Reports no additional cardiovascular complaints Respiratory: Respiratory: Reports no additional respiratory complaints Gastrointestinal: Gastrointestinal: Reports no additional gastrointestinal complaints Musculoskeletal: Musculoskeletal: Reports as per HPI Integumentary/Breasts: Skin/Breast: Reports system reviewed and no additional complaints, except as docu PMFSH Past Medical History Medical History Hx of completed stroke Cellulitis Stasis ulcer Hypertension Congestive heart failure Surgical History Surgical History Toe amputee Family History Family History Father Acute myocardial infarction History of blood clots Diabetes mellitus Mother Acute myocardial infarction Chronic obstructive pulmonary disease Social History Social History Social History: Patient lives alone. He is unemployed. He is trying to get disability. He is a full code. He nominates his sister Cheryl to be the individual would make medical decisions for him if he is unable. He denies alcohol, tobacco or drug use. He does have a history of cocaine use in the past. Smoking status: Never smoker Alcohol intake: never Substance use: never Lack of Transportation: No Lack of Food: Never True Current Housing: I Have Housing Concerned About Future Housing: No Difficulty Paying Gas/Electric Bills: No Difficulty Paying for Meds: No Currently Unemployed: No Education: Trade/Vocational Certificate Difficulty w/ Childcare or Family Care: No Spiritual care concerns: No Exam 2 Narrative: GENERAL: Well-appearing, well-nourished, and in no acute distress. HEAD: Normocephalic, atraumatic. EYES: PERRLA and EOMI. ENT: Nares clear, no rhinorrhea or epistaxis. Mucous membranes moist. NECK: Supple. CHEST: Clear to auscultation. No respiratory distress. HEART: Regular rate and rhythm. No murmur heard. Normal peripheral pulses. ABDOMEN: Soft, nontender, nondistended, normal active bowel sounds. EXTREMITIES: Normal range of motion. right lower ext . is swollen , erythema up to the knee , warmth on palpation has an open ulcer on the lateral aspect of the leg . SKIN: Warm, dry, no rash. NEURO: No focal deficits. Alert and oriented x3. PSYCH: Normal mood and affect. Course Course Emergency Course: notified pt about his lab work , agreed with admisssion Vital Signs Vital signs: Vital Signs Temperature 36.4 C 02/14/25 12:30 Pulse Rate 81 02/14/25 12:30 Respiratory Rate 18 02/14/25 12:30 Blood Pressure 102/72 02/14/25 12:30 Pulse Oximetry 96 02/14/25 12:30 Oxygen Delivery Room Air 02/14/25 12:30 Temperature 36.4 C 02/14/25 12:30 Pulse Rate 81 02/14/25 12:30 Respiratory Rate 18 02/14/25 12:30 Blood Pressure 102/72 02/14/25 12:30 Pulse Oximetry 96 02/14/25 12:30 Oxygen Delivery Room Air 02/14/25 12:30 Medical Decision Making MDM Narrative Medical decision making narrative: 54-year-old with of morbid obesity hypertension and recurrent cellulitis presents to the ER with increased pain and redness will do a septic workup start him on IV vancomycin. Differential Diagnosis Differential Diagnosis: Cellulitis , allergic reaction , lymphedema Medical Records Medical records reviewed: Yes I reviewed the external patient's medical records. Vital Signs Vital Signs: Vital Signs Temperature 36.4 C 02/14/25 12:30 Pulse Rate 81 02/14/25 12:30 Respiratory Rate 18 02/14/25 12:30 Blood Pressure 102/72 02/14/25 12:30 Pulse Oximetry 96 02/14/25 12:30 Oxygen Delivery Room Air 02/14/25 12:30 Temperature 36.4 C 02/14/25 12:30 Pulse Rate 81 02/14/25 12:30 Respiratory Rate 18 02/14/25 12:30 Blood Pressure 102/72 02/14/25 12:30 Pulse Oximetry 96 02/14/25 12:30 Oxygen Delivery Room Air 02/14/25 12:30 Lab Data Lab results reviewed: Yes I reviewed the patient's lab results. 02/14/25 12:53 02/14/25 12:53 Labs: Lab Results 02/14/25 Range/Units 12:53 WBC 16.5 H (4.8-10.8) K/mm3 RBC 5.40 (4.70-6.10) M/mm3 Hgb 15.8 (14.0-18.0) g/dL Hct 48.4 (40.0-54.0) % MCV 89.6 (78.0-102.0) fL MCH 29.3 (27.0-31.0) pg MCHC 32.6 (32-36) g/dL RDW 14.0 (11.6-14.4) % Plt Count 180 (150-420) K/mm3 MPV 9.9 (8.7-11.0) fl Immature Gran % (Auto) 0.8 H (0.0-0.0) % Neut % (Auto) 83.2 H (50.0-70.0) % Lymph % (Auto) 5.5 L (18.0-42.0) % [place] % (Auto) 9.6 (2.0-11.0) % Eos % (Auto) 0.7 L (1.0-6.0) % Baso % (Auto) 0.2 (0.0-1.0) % Lymph # (Auto) 0.91 L (1.10-4.50) K/mm3 [place] # (Auto) 1.59 H (0.10-0.90) K/mm3 Eos # (Auto) 0.11 (0.02-0.50) K/mm3 Baso # (Auto) 0.04 (0.00-0.10) K/mm3 Abs Immat Gran (auto) 0.13 H (0.00-0.00) K/mm3 Absolute Neuts (auto) 13.70 H (1.70-7.20) K/mm3 Absolute Nucleated RBC 0.00 (0.00-0.00) K/mm3 Nucleated RBC % 0.0 (0-0.0) % Sodium 138 (137-145) mmol/L Potassium 4.2 (3.4-5.0) mmol/L Chloride 107 (98-107) mmol/L Carbon Dioxide 23 (22-30) mmol/L Anion Gap 8 (4-12) mmol/L BUN 22 H D (9-20) mg/dL Creatinine 1.58 H (0.7-1.3) mg/dL Estim Creat Clear Calc 63 ml/min Estimated GFR 46 L (59 - ) Glucose 102 (65-110) mg/dL Calculated Osmolality 289 (285-295) mOsm/kg Lactic Acid 1.0 (0.4-2.0) mmol/L Calcium 9.3 (8.4-10.2) mg/dL Total Bilirubin 0.9 (0.2-1.3) mg/dL AST 17 (17-59) U/L ALT 13 (6-50) U/L Alkaline Phosphatase 113 (38-126) U/L C-Reactive Protein > 9.0 H (<1.0) mg/dL Total Protein 7.4 (6.3-8.2) g/dL Albumin 3.7 (3.5-5.1) g/dL Discharge Plan Discharge Clinical Impression: Cellulitis Qualifiers: Site of cellulitis: extremity Site of cellulitis of extremity: lower extremity Laterality: right Qualified Code(s): L03.115 - Cellulitis of right lower limb Patient Disposition: Still a Patient Condition: Stable Patient Language: Puerto Rican Prescriptions: No Action oxycodone-acetaminophen [Percocet] 5-325 mg tablet 1 tablet PO Q6H PRN (Reason: pain) Qty: 14 0RF clindamycin HCl 300 mg capsule 300 mg PO Q6H 10 Days Qty: 40 0RF mupirocin 2 % ointment 1 applic topical TID 7 Days Qty: 22 0RF carvedilol 12.5 mg tablet 1 tablet PO BID lisinopril 20 mg tablet 1 tablet PO DAILY furosemide 20 mg tablet 1 tablet PO BID potassium chloride 10 mEq tablet,ER particles/crystals 1 tablet PO DAILY Follow-up/Referrals: Janet,MD Ollie [Primary Care Provider, [facility]] Time of Disposition: 15:09
--- NOTE | 2025-02-14 16:01 | ADMGEN ---
This patient, Dennis Ramos, was admitted to 2nd Floor Room 201-1. Patient/family oriented to hospital policies and general routines including ID bracelet, bed and alarms, visiting hours, pain management, procedures, bathroom and other care routines, personal items, smoking policy, room service/diet, and visiting hours. Information on how to activate the Rapid Response Team has been discussed. Patient/Family are encouraged to report perceived risks to care and to ask questions if they do not understand what they are told or what they should do.
[2025-02-14] MEDS: CEFEPIME 1 GM in SODIUM CHLORIDE 0.9% IV 50 ML 100 ML IVPB (16:18)
[2025-02-14] MEDS: SODIUM CHLORIDE 0.9% IV 1,000 ML 75 ML IV CONT (16:49)
[2025-02-14] MEDS: HYDROcodone/acetaminophen (*CRX) 5-325 MG TABLET 1 TAB PO (23:15)
[2025-02-15] MEDS: SODIUM CHLORIDE 0.9% IV 1,000 ML 75 ML IV CONT ×2 (05:35→19:18)
[2025-02-15 05:36] LABS: Hematocrit 43.7 % (40.0-54.0); Hemoglobin 13.9 g/dL (14.0-18.0); Immature Granulocyte Percent A 0.4 % (0.0-0.0); Lymphocytes Absolute Auto 1.09 K/mm3 (1.10-4.50); Mean Corpuscular HGB Conc 31.8 g/dL (32-36); Mean Corpuscular Hemoglobin 29.2 pg (27.0-31.0); Mean Corpuscular Volume 91.8 fL (78.0-102.0); Nucleated Red Blood Cells Absolute Auto 0.00 K/mm3 (0.00-0.00); Nucleated Red Blood Cells Perc 0.0 % (0-0.0); Platelet Count Result 159 K/mm3 (150-420); Red Blood Count 4.76 M/mm3 (4.70-6.10); White Blood Count 11.8 K/mm3 (4.8-10.8)
[2025-02-15 05:50] LABS: Anion Gap 7 mmol/L (4-12); Blood Urea Nitrogen 28 mg/dL (9-20); Calcium 8.8 mg/dL (8.4-10.2); Carbon Dioxide 24 mmol/L (22-30); Chloride 109 mmol/L (98-107); Estimated CRCL calculation 72 ml/min; Estimated Glomerular Filt Rate 55; Glucose 96 mg/dL (65-110); Osmolality Calculated 295 mOsm/kg (285-295); Potassium 4.2 mmol/L (3.4-5.0); Sodium 140 mmol/L (137-145)
[2025-02-15 08:00] VITALS: BP 106/65; PULSE 60; RESP 16; TEMP 36.2; O2SAT 98
[2025-02-15] MEDS: VANCOMYCIN 1,500 MG/NS 500 ML 1,500 MG/500 ML BAG 250 MG IVPB (09:37)
[2025-02-15 09:38] VITALS: PULSE 68
[2025-02-15] MEDS: FUROSEMIDE INJ 20 MG/2 ML VIAL IV PUSH (09:38)
[2025-02-15] MEDS: ENOXAPARIN 40 MG/0.4 ML SYRINGE SUB-Q (09:38)
[2025-02-15] MEDS: PANTOPRAZOLE SODIUM IV 40 MG VIAL IV PUSH (09:38)
[2025-02-15] MEDS: HYDROcodone/acetaminophen (*CRX) 5-325 MG TABLET 1 TAB PO ×3 (09:39→21:50)
[2025-02-15] MEDS: POTASSIUM CHLORIDE 10 MEQ ER TABLET PO (09:39)
--- NOTE | 2025-02-15 11:44 | P.HP_ITS ---
H&P: HPI History of Present Illness Date/Time: 02/15/25 11:44 Chief Complaint: RLE swelling/ redness Narrative: patient is a 54-year-old male who presented to the emergency department with complaints of worsening right lower extremity swelling and erythema. patient reports he has had worsening redness to his right lower extremity that started 4 days prior to arrival to the ED. patient reports he does have a past medical history HTN and recurrent rle cellulitis with venous stasis ulcers. patient reports he has had previous wound care outpatient for a nonhealing wound to the right lower extremity. patient denied any chest pain, shortness a breath, nausea, vomiting, fever or chills at home prior to arrival but did report mild to moderate pain to right lower extremity worsening with ambulation. In the ED: patient was found to have leukocytosis of 16 in acute kidney injury with creatinine of 1.58, elevated CRP greater than 9.0. patient was initiated on IV vancomycin and was admitted to the medical unit for further treatment right lower extremity cellulitis. upon evaluation of patient following morning noted to have 3+ edema to right lower extremity with erythema extending from the knee down to ankle patient at that time denied any worsening or improvement to redness. Patient still denied any fevers chills with continued mild to moderate right lower extremity pain. of note there was a wound to right lateral aspect of the ankle with home soiled dressing still in place in noted purulent drainage and malodorous wound culture sent. Review of Systems Review of Systems: All systems reviewed & are unremarkable except as noted in HPI and below PMFSH Past Medical History Medical History Hx of completed stroke Cellulitis Stasis ulcer Hypertension Congestive heart failure Surgical History Surgical History Toe amputee Family History Family History Father Acute myocardial infarction History of blood clots Diabetes mellitus Mother Acute myocardial infarction Chronic obstructive pulmonary disease Social History Social History Social History: Patient lives alone. He is unemployed. He is trying to get disability. He is a full code. He nominates his sister Cheryl to be the individual would make medical decisions for him if he is unable. He denies alcohol, tobacco or drug use. He does have a history of cocaine use in the past. Smoking status: Never smoker Second hand tobacco smoke exposure: No Alcohol intake: never Substance use: never Lack of Transportation: No Lack of Food: Never True Current Housing: I Have Housing Concerned About Future Housing: No Difficulty Paying Gas/Electric Bills: No Difficulty Paying for Meds: No Currently Unemployed: No Education: Trade/Vocational Certificate Difficulty w/ Childcare or Family Care: No Spiritual care concerns: No Meds Home Medications and Allergies Home Medications ?Medication ?Instructions ?Recorded ?Confirmed ?Type carvedilol 12.5 mg tablet 1 tablet PO BID 11/17/2103/02 History furosemide 20 mg tablet 1 tablet PO BID 11/17/2103/02 History lisinopril 20 mg tablet 1 tablet PO DAILY 11/17/21 0 02/14/25 History potassium chloride 10 mEq 1 tablet PO DAILY 11/17/21 0 02/14/25 History tablet,extended release(part/cryst) amlodipine 5 mg tablet 5 mg PO DAILY 02/14/2502/14 History Allergies Allergy/AdvReac Type Severity Reaction Status Date / Time No Known Allergies Allergy Verified 02/14/25 12:37 Vital Signs Vital Signs - 24 hr 02/14/25 12:30 02/14/25 13:30 02/14/25 14:00 Temperature 97.6 F Pulse Rate 81 58 L 69 Respiratory Rate 18 16 17 Blood Pressure 102/72 90/59 L 91/46 L Pulse Oximetry 96 98 97 Oxygen Delivery Room Air 02/14/25 14:30 02/14/25 15:00 02/14/25 15:28 Temperature Pulse Rate 71 70 75 Respiratory Rate 17 18 18 Blood Pressure 114/74 107/54 L Pulse Oximetry 16 L 99 96 Oxygen Delivery Room Air Room Air Room Air 02/14/25 15:47 02/14/25 16:00 02/14/25 19:44 Temperature 97.6 F 98 F Pulse Rate 70 75 Respiratory Rate 18 18 Blood Pressure 107/54 L 113/68 Pulse Oximetry 99 96 Oxygen Delivery Room Air Room Air Room Air 02/14/25 20:27 02/14/25 23:19 02/15/25 09:38 Temperature 97.6 F Pulse Rate 69 68 68 Respiratory Rate 18 Blood Pressure 95/60 L Pulse Oximetry 98 Oxygen Delivery Room Air Exam Const: General: comfortable and no acute distress HENMT: Ears: TM's normal bilaterally Face/Nose/Sinus: Normal nares present Mouth: Yes moist mucous membranes Eyes: General: appearance normal, both eyes and all related structures Sclera: sclerae normal Pupils: Equal, round and reactive pupils present Neck: Neck: supple and no JVD Resp: Effort & Inspection: normal respiratory effort Auscultation: clear to auscultation bilaterally Cardio: Rate: regular rate Rhythm: regular rhythm GI: GI Palp: Yes Soft to palpation Auscultation: normal bowel sounds Skin: General skin exam: erythema (RLE) Wounds: wounds noted ulceration right lateral ankle drainage purulent Neuro: General: gait normal Speech: normal speech Motor exam (neuro): 5/5 motor strength present throughout Sensory Exam: normal sensation Extrem: General: edema right Psych: Mental Status: mental status grossly normal Affect: normal affect H&P: Results Labs Labs: Short CBC 02/14/25 02/15/25 Range/Units 12:53 05:27 WBC 16.5 H 11.8 H (4.8-10.8) K/mm3 Hgb 15.8 13.9 L (14.0-18.0) g/dL Hct 48.4 43.7 (40.0-54.0) % Plt Count 180 159 (150-420) K/mm3 BMP 02/14/25 02/15/25 02/15/25 12:53 05:27 05:27 Sodium 138 140 Potassium 4.2 4.2 Chloride 107 109 H Carbon Dioxide 23 24 BUN 22 H D 28 H Creatinine 1.58 H 1.40 H 1.35 H Glucose 102 96 Calcium 9.3 8.8 Liver Function 02/14/25 Range/Units 12:53 Total Bilirubin 0.9 (0.2-1.3) mg/dL AST 17 (17-59) U/L ALT 13 (6-50) U/L Alkaline Phosphatase 113 (38-126) U/L Albumin 3.7 (3.5-5.1) g/dL Assessment and Plan Assessment and plan (1) Cellulitis: Qualifiers: Laterality: right Site of cellulitis: extremity Site of cellulitis of extremity: lower extremity Qualified Code(s): L03.115 - Cellulitis of right lower limb Code(s): L03.90 - Cellulitis, unspecified Status: Acute Assessment and Plan: patient with right lower extremity erythema and swelling times last 4 days patient has had recurrent cellulitis to this extremity previously was being seen at the wound clinic. Previous DEVIKA 01/2024: Normal DEVIKA * Blood cultures NGTD * Wound culture pending * IV vancomycin * Monitor IV hydration. * US to r/o DVT * Trend CBC * Pain management * Recommended duration of antibiotic therapy for 7-10 days. (2) Stasis ulcer: Code(s): I83.009 - Varicose veins of unspecified lower extremity with ulcer of unspecified site; L97.909 - Non-pressure chronic ulcer of unspecified part of unspecified lower leg with unspecified severity Status: Acute Assessment and Plan: patient has wound to lateral right ankle chronic has followed up with wound clinic previously * wound culture pending * Santyl and daily dressing changes * can follow-up outpatient after discharge (3) Hypertension: Code(s): I10 - Essential (primary) hypertension Status: Acute Assessment and Plan: * Continued amlodipine and carvedilol * monitor BP per unit protocol (4) Congestive heart failure: Code(s): I50.9 - Heart failure, unspecified Status: Acute Assessment and Plan: patient reports history of heart failure previous echo reviewed LVEF of 60-65% * continued patient's oral Lasix b.i.d. (5) CHARO (acute kidney injury): Code(s): N17.9 - Acute kidney failure, unspecified Status: Acute Assessment and Plan: patient on admission creatinine of 1.65 * improving with IV NS * continue to trend renal function * avoid nephrotoxins Plan Code status: Full code per patient DVT prophylaxis: Lovenox Stress ulcer prophylaxis: NA PT/OT notes: ambulatory Disposition: patient admitted to the medical unit for observation for treatment of right lower extremity cellulitis patient is ambulatory on own and plan will be to return home when medically stable. Quality VTE Prophylaxis VTE prophylaxis: pharmacologic ordered -Patient's previous records reviewed on admission -ER notes reviewed in detail on admission -discussed all findings and current treatment plan with patient/Family/POA -Consultations reviewed for recommendations -Patient's disposition for safe discharge discussed with mattress spring encaser Dictation performed by [employer] direct speech recognition software, therefore child care counselor variants and typographical errors may occur. Hospitalist MIPS Advance Care Plan I have confirmed that the patient's Advanced Care Plan is present, code status is documented, or surrogate decision maker is listed in patient medical record.: Yes Medication Reconciliation I have utilized all available resources to obtain, update and review the patients current medications (includes all prescriptions, OTC, herbals, cannabis, and nutritional supplements).: Yes The patient is not eligible for med reconciliation; the patient is in a emergent medical situation where delaying treatment would jeopardize the patients health.: No
--- NOTE | 2025-02-15 12:08 | WNDPHOTO ---
PHOTO ONLY - See Nursing Notes and/ or assessments for documentation.
[2025-02-15 16:00] VITALS: BP 105/63; PULSE 58; RESP 16; TEMP 36.4; O2SAT 98
[2025-02-15] MEDS: FUROSEMIDE 20 MG TABLET PO (17:49)
[2025-02-15 20:00] VITALS: PULSE 62; RESP 16; O2SAT 98
[2025-02-15] MEDS: COLLAGENASE OINT 30 GM TUBE 1 APPLIC TOPICAL (21:49)
[2025-02-15 21:50] VITALS: PULSE 62
[2025-02-16] VITALS: BP 106/67; PULSE 62; RESP 16; TEMP 36.5; O2SAT 98
[2025-02-16] MEDS: VANCOMYCIN 1,500 MG/NS 500 ML 1,500 MG/500 ML BAG 250 MG IVPB ×2 (02:08→20:54)
[2025-02-16 05:23] LABS: Hematocrit 44.1 % (40.0-54.0); Hemoglobin 13.9 g/dL (14.0-18.0); Mean Corpuscular HGB Conc 31.5 g/dL (32-36); Mean Corpuscular Hemoglobin 29.3 pg (27.0-31.0); Mean Corpuscular Volume 93.0 fL (78.0-102.0); Platelet Count Result 161 K/mm3 (150-420); Red Blood Count 4.74 M/mm3 (4.70-6.10); White Blood Count 7.5 K/mm3 (4.8-10.8)
[2025-02-16 05:37] LABS: Estimated CRCL calculation 84 ml/min; Estimated Glomerular Filt Rate > 60
[2025-02-16 05:39] LABS: Alanine Aminotransferase 11 U/L (6-50); Albumin Level 2.9 g/dL (3.5-5.1); Alkaline Phosphatase 91 U/L (38-126); Anion Gap 6 mmol/L (4-12); Aspartate Amino Transferase 14 U/L (17-59); Bilirubin,Total 0.8 mg/dL (0.2-1.3); Blood Urea Nitrogen 22 mg/dL (9-20); Calcium 8.8 mg/dL (8.4-10.2); Carbon Dioxide 24 mmol/L (22-30); Chloride 109 mmol/L (98-107); Estimated CRCL calculation 85 ml/min; Estimated Glomerular Filt Rate > 60; Glucose 86 mg/dL (65-110); Magnesium 2.1 mg/dL (1.6-2.3); Osmolality Calculated 290 mOsm/kg (285-295); Potassium 4.6 mmol/L (3.4-5.0); Sodium 139 mmol/L (137-145); Total Protein 5.9 g/dL (6.3-8.2)
[2025-02-16 08:00] VITALS: BP 123/69; PULSE 56; RESP 16; TEMP 36.1; O2SAT 100
[2025-02-16 08:49] VITALS: PULSE 56
[2025-02-16] MEDS: ENOXAPARIN 40 MG/0.4 ML SYRINGE SUB-Q (08:49)
[2025-02-16] MEDS: HYDROcodone/acetaminophen (*CRX) 5-325 MG TABLET 1 TAB PO ×2 (08:50→20:53)
[2025-02-16] MEDS: POTASSIUM CHLORIDE 10 MEQ ER TABLET PO (08:51)
[2025-02-16] MEDS: COLLAGENASE OINT 30 GM TUBE 1 APPLIC TOPICAL ×2 (08:51→20:53)
[2025-02-16] MEDS: FUROSEMIDE 20 MG TABLET PO ×2 (08:51→17:37)
--- NOTE | 2025-02-16 09:40 | P.PNIM_ITS ---
Progress Note: A&P Assessment and Plan (1) Cellulitis: Qualifiers: Laterality: right Site of cellulitis: extremity Site of cellulitis of extremity: lower extremity Qualified Code(s): L03.115 - Cellulitis of right lower limb Code(s): L03.90 - Cellulitis, unspecified Status: Acute Assessment and Plan: patient with right lower extremity erythema and swelling times last 4 days patient has had recurrent cellulitis to this extremity previously was being seen at the wound clinic. Previous DEVIKA 01/2024: Normal DEVIKA * Blood cultures NGTD * Wound culture NGTD * IV vancomycin * Monitor IV hydration. * US to r/o DVT pending * Trend CBC * Pain management * Recommended duration of antibiotic therapy for 7-10 days. * Erythema receding from wound outline placed yesterday (2) Stasis ulcer: Code(s): I83.009 - Varicose veins of unspecified lower extremity with ulcer of unspecified site; L97.909 - Non-pressure chronic ulcer of unspecified part of unspecified lower leg with unspecified severity Status: Acute Assessment and Plan: patient has wound to lateral right ankle chronic has followed up with wound clinic previously * wound culture NGTD * Santyl and daily dressing changes * Granulation tissue present * No longer malodorous * can follow-up outpatient after discharge (3) Hypertension: Code(s): I10 - Essential (primary) hypertension Status: Acute Assessment and Plan: * Continued amlodipine and carvedilol * monitor BP per unit protocol (4) Congestive heart failure: Code(s): I50.9 - Heart failure, unspecified Status: Acute Assessment and Plan: patient reports history of heart failure previous echo reviewed LVEF of 60-65% * continued patient's oral Lasix b.i.d. (5) CHARO (acute kidney injury): Code(s): N17.9 - Acute kidney failure, unspecified Status: Acute Assessment and Plan: patient on admission creatinine of 1.65 * improving with IV NS * continue to trend renal function * avoid nephrotoxins Plan Code status: Full code per patient DVT prophylaxis: Lovenox Stress ulcer prophylaxis: NA PT/OT notes: ambulatory Disposition: patient admitted to the medical unit for observation for treatment of right lower extremity cellulitis patient is ambulatory on own and plan will be to return home when medically stable. Subjective Date/time seen: 02/16/25 09:40 Interval history: No acute events overnight. During examination this morning patient is in no acute distress. Patient reports improved pain in his right lower extremity. Redness of the right lower extremity is improved versus yesterday. Lower extremity doppler study pending. Review of Systems Review of Systems: All systems reviewed & are unremarkable except as noted in HPI and below Constitutional: Constitutional: Reports no additional constitutional complaints Eyes: Eyes: Reports no additional eye complaints ENT: Reports system reviewed and no additional complaints, except as documented Cardiovascular: Cardiovascular: Reports pedal edema and Reports leg edema Respiratory: Respiratory: Reports no additional respiratory complaints Gastrointestinal: Gastrointestinal: Reports no additional gastrointestinal complaints Genitourinary: Genitourinary: Reports no additional male genitourinary complaints Musculoskeletal: Musculoskeletal: Reports no additional musculoskeletal complaints Integumentary/Breasts: Skin/Breast: Reports erythema (RLE) Neurologic: Reports system reviewed and no additional complaints, except as documented Psychiatric: Psychiatric: Reports no additional psychiatric complaints Exam Const: General: comfortable and no acute distress HENMT: Ears: TM's normal bilaterally Face/Nose/Sinus: Normal nares present Mouth: Yes moist mucous membranes Eyes: General: appearance normal, both eyes and all related structures Sc diomedes: sclerae normal Pupils: Equal, round and reactive pupils present Neck: Neck: supple and no JVD Resp: Effort & Inspection: normal respiratory effort Auscultation: clear to auscultation bilaterally Cardio: Rate: regular rate Rhythm: regular rhythm Peripheral pulses: other ( Right pedal and post tibial pulses 1+) GI: GI Palp: Yes Soft to palpation Auscultation: normal bowel sounds Skin: General skin exam: erythema (RLE, improving) Wounds: wounds noted (right lateral ankle, granulation tissue ) Neuro: General: gait normal Cranial nerves: Yes Equal, round and reactive pupils present Speech: normal speech Motor exam (neuro): 5/5 motor strength present throughout Sensory Exam: normal sensation Extrem: General: edema (RLE) Psych: Mental Status: mental status grossly normal Affect: normal affect Objective Data Vital Signs Vital Signs: Vital Signs - 24 hr 02/15/25 16:00 02/15/25 20:00 02/15/25 21:50 Temperature 97.6 F Pulse Rate 58 L 62 62 Respiratory Rate 16 16 Blood Pressure 105/63 Pulse Oximetry 98 98 Oxygen Delivery Room Air Room Air 02/16/25 00:00 02/16/25 08:49 Temperature 97.7 F Pulse Rate 62 56 L Respiratory Rate 16 Blood Pressure 106/67 Pulse Oximetry 98 Oxygen Delivery Room Air Intake/Output Intake/Output: Intake & Output 02/13/25 02/14/25 02/15/25 02/16/25 23:59 23:59 23:59 23:59 Intake Total 1310 4510 1300 Output Total 0 1400 Balance 1310 3110 1300 Meds/Results Medications: Active Medications Generic Name Dose Route Start Last Admin Trade Name Evertonq PRN Reason Stop Dose Admin Acetaminophen 650 mg 02/14/25 15:28 Acetaminophen 325 Mg Tablet PO Q4H PRN Mild Pain (1-3) or Fever Hydrocodone Bitart/Acetaminophen 1 tab 02/14/25 17:30 02/16/25 08:50 Hydrocodone/Acetaminophen (*Crx) 5-325 Mg Tablet PO 1 tab Q4H PRN Administration Moderate Pain (4-6) Amlodipine Besylate 5 mg 02/15/25 09:00 02/16/25 08:50 Amlodipine Besylate 5 Mg Tablet PO 5 mg DAILY AMANDA Administration Carvedilol 12.5 mg 02/14/25 21:00 02/16/25 08:49 Carvedilol 12.5 Mg Tablet PO 12.5 mg Q12HR AMANDA Administration Collagenase 1 applic 02/15/25 21:00 02/16/25 08:51 Collagenase Oint 30 Gm Tube TOPICAL 1 applic Q12HR AMANDA Administration Enoxaparin Sodium 40 mg 02/15/25 09:00 02/16/25 08:49 Enoxaparin 40 Mg/0.4 Ml Syringe SUB-Q 40 mg DAILY AMANDA Administration Furosemide 20 mg 02/15/25 17:00 02/16/25 08:51 Furosemide 20 Mg Tablet PO 20 mg BID AMANDA Administration Vancomycin HCl 1,500 mg in 500 mls @ 250 mls/hr 02/15/25 08:00 02/16/25 04:08 Vancomycin 1,500 Mg/Ns 500 Ml IVPB Infused Q18H AMANDA Infusion Sodium Chloride 1,000 mls @ 75 mls/hr 02/14/25 15:30 02/15/25 19:18 Normal Saline Iv IV CONT 75 mls/hr .[id number] AMANDA Administration Lisinopril 20 mg 02/15/25 09:00 02/16/25 08:51 Lisinopril 20 Mg Tablet PO 20 mg DAILY AMANDA Administration Morphine Sulfate 2 mg 02/14/25 17:30 Morphine Sulfate (*Crx) 2 Mg/Ml Inj IV PUSH Q4H PRN Pain Rated 7-10 Ondansetron HCl 4 mg 02/14/25 17:30 Ondansetron Inj 4 Mg/2 Ml Vial IV PUSH Q6H PRN Nausea And Vomiting Potassium Chloride 10 meq 02/15/25 09:00 02/16/25 08:51 Potassium Chloride 10 Meq Er Tablet PO 10 meq DAILY AMANDA Administration Labs Labs: Laboratory Results - last 24 hr 02/15/25 02/16/25 02/16/25 05:27 05:14 05:14 WBC 7.5 RBC 4.74 Hgb 13.9 L Hct 44.1 MCV 93.0 MCH 29.3 MCHC 31.5 L RDW 14.3 Plt Count 161 MPV 9.7 Sodium 139 Potassium 4.6 Chloride 109 H Carbon Dioxide 24 Anion Gap 6 BUN 22 H Creatinine Cancelled 1.15 1.13 Estim Creat Clear Calc Cancelled 84 Estimated GFR Cancelled Glucose Calculated Osmolality Calcium Magnesium Total Bilirubin AST ALT Alkaline Phosphatase Total Protein Albumin 02/16/25 02/16/25 05:14 05:14 WBC RBC Hgb Hct MCV MCH MCHC RDW Plt Count MPV Sodium Potassium Chloride Carbon Dioxide Anion Gap BUN Creatinine Estim Creat Clear Calc 85 Estimated GFR > 60 > 60 Glucose 86 Calculated Osmolality 290 Calcium 8.8 Magnesium 2.1 Total Bilirubin 0.8 AST 14 L ALT 11 Alkaline Phosphatase 91 Total Protein 5.9 L Albumin 2.9 L Quality VTE Prophylaxis VTE prophylaxis: pharmacologic ordered -Patient's previous records reviewed on admission -ER notes reviewed in detail on admission -discussed all findings and current treatment plan with patient/Family/POA -Consultations reviewed for recommendations -Patient's disposition for safe discharge discussed with pillowcase cleaner Dictation performed by [employer] direct speech recognition software, therefore body shop technician variants and typographical errors may occur. Hospitalist MIPS Advance Care Plan I have confirmed that the patient's Advanced Care Plan is present, code status is documented, or surrogate decision maker is listed in patient medical record.: Yes Medication Reconciliation I have utilized all available resources to obtain, update and review the patients current medications (includes all prescriptions, OTC, herbals, cannabis, and nutritional supplements).: Yes The patient is not eligible for med reconciliation; the patient is in a emergent medical situation where delaying treatment would jeopardize the patients health.: No
[2025-02-16 16:35] VITALS: BP 130/75; PULSE 58; RESP 16; TEMP 35.8; O2SAT 98
[2025-02-16 19:55] VITALS: PULSE 64; RESP 16; O2SAT 98
[2025-02-16 20:53] VITALS: PULSE 66
[2025-02-17] VITALS: BP 146/88; PULSE 66; RESP 16; TEMP 36.9; O2SAT 100
[2025-02-17 05:42] LABS: Hematocrit 44.8 % (40.0-54.0); Hemoglobin 14.2 g/dL (14.0-18.0); Mean Corpuscular HGB Conc 31.7 g/dL (32-36); Mean Corpuscular Hemoglobin 29.0 pg (27.0-31.0); Mean Corpuscular Volume 91.4 fL (78.0-102.0); Platelet Count Result 207 K/mm3 (150-420); Red Blood Count 4.90 M/mm3 (4.70-6.10); White Blood Count 6.5 K/mm3 (4.8-10.8)
[2025-02-17 05:59] LABS: Alanine Aminotransferase 21 U/L (6-50); Albumin Level 3.3 g/dL (3.5-5.1); Alkaline Phosphatase 96 U/L (38-126); Anion Gap 9 mmol/L (4-12); Aspartate Amino Transferase 25 U/L (17-59); Bilirubin,Total 1.1 mg/dL (0.2-1.3); Blood Urea Nitrogen 15 mg/dL (9-20); Calcium 9.1 mg/dL (8.4-10.2); Carbon Dioxide 24 mmol/L (22-30); Chloride 108 mmol/L (98-107); Estimated CRCL calculation 95 ml/min; Estimated Glomerular Filt Rate > 60; Glucose 85 mg/dL (65-110); Magnesium 2.1 mg/dL (1.6-2.3); Osmolality Calculated 291 mOsm/kg (285-295); Potassium 4.4 mmol/L (3.4-5.0); Sodium 141 mmol/L (137-145); Total Protein 6.6 g/dL (6.3-8.2)
[2025-02-17 08:00] VITALS: BP 168/94; PULSE 65; RESP 18; TEMP 36.6; O2SAT 97
[2025-02-17 09:41] VITALS: PULSE 65
[2025-02-17] MEDS: COLLAGENASE OINT 30 GM TUBE 1 APPLIC TOPICAL (09:41)
[2025-02-17] MEDS: FUROSEMIDE 20 MG TABLET PO (09:42)
[2025-02-17] MEDS: POTASSIUM CHLORIDE 10 MEQ ER TABLET PO (09:42)
--- NOTE | 2025-02-17 10:41 | P.DS_ITS ---
DS: Admitting Diagnosis Discharge Date 02/17/2025 Admitting Diagnosis Cellulitis/CHARO DS: Discharge Diagnosis Discharge Diagnosis (1) Cellulitis: Qualifiers: Laterality: right Site of cellulitis: extremity Site of cellulitis of extremity: lower extremity Qualified Code(s): L03.115 - Cellulitis of right lower limb Code(s): L03.90 - Cellulitis, unspecified Status: Acute (2) Stasis ulcer: Code(s): I83.009 - Varicose veins of unspecified lower extremity with ulcer of unspecified site; L97.909 - Non-pressure chronic ulcer of unspecified part of unspecified lower leg with unspecified severity Status: Acute (3) Hypertension: Code(s): I10 - Essential (primary) hypertension Status: Acute (4) Congestive heart failure: Code(s): I50.9 - Heart failure, unspecified Status: Acute (5) CHARO (acute kidney injury): Code(s): N17.9 - Acute kidney failure, unspecified Status: Acute DS: Summary Hospital Course Reason for hospitalization: Cellulitis/CHARO Hospital Course: Admission: Patient was a 54-year-old male who presented to the emergency department with complaints of worsening right lower extremity swelling and erythema. patient reports he has had worsening redness to his right lower extremity that started 4 days prior to arrival to the ED. patient reports he does have a past medical history HTN and recurrent rle cellulitis with venous stasis ulcers. patient reports he has had previous wound care outpatient for a nonhealing wound to the right lower extremity. patient denied any chest pain, shortness a breath, nausea, vomiting, fever or chills at home prior to arrival but did report mild to moderate pain to right lower extremity worsening with ambulation. In the ED: patient was found to have leukocytosis of 16 in acute kidney injury with creatinine of 1.58, elevated CRP greater than 9.0. patient was initiated on IV vancomycin and was admitted to the medical unit for further treatment right lower extremity cellulitis. Hospital Course Patient was admitted to the medical unit for further evaluation and treatment cellulitis to right lower extremity on examination he was noted to have 3+ edema to right lower extremity with erythema extending from the knee down to ankle patient at that time denied any worsening or improvement to redness. Patient still denied any fevers chills with continued mild to moderate right lower extremity pain. of note there was a wound to right lateral aspect of the ankle with home soiled dressing still in place in noted purulent drainage and malodorous wound culture sent. Patient was started on IV vancomycin pending cultures. Also performed a venous Doppler which was negative for DVT. Continue daily dressing changes to wean with santyl. Patient had overall improvement to erythema and edema as well WBC trending back down to 6.5. Patient seen assessed at time of discharge in no acute distress requesting to return home on oral antibiotic therapy and he would follow up with the [facility]ound [facility] outpatient. Patient was discharged home on oral Bactrim to complete 14 day coverage. Patient's wound culture came back with Proteus mirabilis and strep C Streptococcus both sensitive to Bactrim. Patient acknowledged and agreed with discharge plan patient discharged home. Status at Discharge Functional status at discharge: independent ambulation Time Spent with Patient Time attestation: Total time spent providing and/or coordinating discharge services: Time spent: Greater than 30 minutes Exam Const: General: comfortable and no acute distress HENMT: Ears: TM's normal bilaterally Face/Nose/Sinus: Normal nares present Mouth: Yes moist mucous membranes Eyes: General: appearance normal, both eyes and all related structures Sclera: sclerae normal Pupils: Equal, round and reactive pupils present Neck: Neck: supple and no JVD Resp: Effort & Inspection: normal respiratory effort Auscultation: clear to auscultation bilaterally Cardio: Rate: regular rate Rhythm: regular rhythm Peripheral pulses: other ( Right pedal and post tibial pulses 1+) GI: Auscultation: normal bowel sounds Skin: General skin exam: erythema (RLE, improving) and wounds noted (right lateral ankle, granulation tissue ) Wounds: wounds noted (right lateral ankle, granulation tissue ) ulceration right lateral ankle drainage purulent Neuro: General: gait normal Cranial nerves: Yes Equal, round and reactive pupils present Speech: normal speech Motor exam (neuro): 5/5 motor strength present throughout Sensory Exam: normal sensation Extrem: General: edema (RLE) right Psych: Mental Status: mental status grossly normal Affect: normal affect DS: Data Data Completed and Pending Labs on day of discharge: Labs from last 24 hours 02/17/25 02/16/25 05:25 19:03 WBC 6.5 RBC 4.90 Hgb 14.2 Hct 44.8 MCV 91.4 MCH 29.0 MCHC 31.7 L RDW 14.0 Plt Count 207 MPV 9.6 Sodium 141 Potassium 4.4 Chloride 108 H Carbon Dioxide 24 Anion Gap 9 BUN 15 D Creatinine 1.00 Estim Creat Clear Calc 95 Estimated GFR > 60 Glucose 85 Calculated Osmolality 291 Calcium 9.1 Magnesium 2.1 Total Bilirubin 1.1 AST 25 ALT 21 Alkaline Phosphatase 96 Total Protein 6.6 Albumin 3.3 L Vancomycin Trough 11.0 Preliminary micro results at discharge 02/14/25 13:00 Blood Culture - Preliminary Blood 02/14/25 12:53 Blood Culture - Preliminary Blood Discharge Plan Discharge Attending physician on discharge: Ricardo Ruiz Consulting providers: Tisha Felipe; Gal Schaefer Discharging Clinician: Tisha Felipe Anticipated Discharge Date/Time: 02/17/25 10:37 Patient Disposition: Home Activity: as tolerated Diet: heart healthy Wound Care Instructions: follow printed instructions and change dressing daily Discharge Instructions: 1). Cellulitis * I have prescribed oral antibiotic therapy please take as indicated incomplete even if symptoms improved * keep right lower extremity elevated * Wound dressing- change daily or when soiled * Clease site with wound cleanser, Apply Santyl to wound and cover with dry dressing * follow-up with wound clinic outpatient-Primary MD will sent referral How can you care for yourself at home? ? Keep track of any new symptoms or changes in your symptoms. ? Rest until you feel better. ? Be safe with medicines. Take your medicines exactly as prescribed. Call your doctor if you think you are having a problem with your medicine. ? Do not drive after taking a prescription pain medicine. ? Ensure to follow-up with primary care physician as indicated and provide updated medication list provided to you at discharge. When should you call for help? Call 911 anytime you think you may need emergency care. For example, call if: ? You passed out (lost consciousness). Call your doctor now or seek immediate medical care if: ? You have new symptoms like fever, difficulty breathing, Chest pain, vomiting, or rash. ? You have new or different pain. ? You are confused and are having trouble thinking clearly. ? Your symptoms are getting worse. Watch closely for changes in your health, and be sure to contact your doctor if: ? You do not get better as expected. Patient Instructions: Antibiotic Form, Sulfamethoxazole/Trimethoprim (By mouth), Collagenase (On the skin), Cellulitis (GEN), Stasis Dermatitis (DC), Acute Wounds (DC) Patient Language: Occitan Stand Alone Forms: General Discharge Information Follow-up/Referrals: Librado,MD Ollie [Primary Care Provider, [facility]] - 02/23/25 10:10 am Discharge Medications: New Santyl 250 unit/gram Ointment 1 applic topical Q12HR Qty: 15 0RF sulfamethoxazole-trimethoprim [Bactrim DS] 800-160 mg tablet 1 tablet PO Q12H Qty: 12 0RF Continued carvedilol 12.5 mg tablet 1 tablet PO BID lisinopril 20 mg tablet 1 tablet PO DAILY furosemide 20 mg tablet 1 tablet PO BID potassium chloride 10 mEq tablet,ER particles/crystals 1 tablet PO DAILY amlodipine 5 mg tablet 5 mg PO DAILY Date of admission: 02/16/25 14:54 Primary Care Provider: Librado,Ollie Admitting Provider: Ricardo Ruiz Attending physician on admission: Ricardo Ruiz Condition: Stable Quality VTE Prophylaxis VTE prophylaxis: pharmacologic ordered -Patient's previous records reviewed on admission -ER notes reviewed in detail on admission -discussed all findings and current treatment plan with patient/Family/POA -Consultations reviewed for recommendations -Patient's disposition for safe discharge discussed with senior case manager Dictation performed by [employer] direct speech recognition software, therefore airplane patrol pilot variants and typographical errors may occur. Hospitalist MIPS Heart Failure (Exclusion) Patient has history of Heart Transplant or Left Ventricular Assistive Device?: No IF YES, STOP HERE Heart Failure (Qualifier) Patient has current or prior documentation of LVEF less than or equal to 40%, or mod/servere depressed LVSF?: No IF NO, STOP HERE
--- NOTE | 2025-02-17 12:02 | PC.NURSE ---
Patient discharge instructions given, voiced understanding to meds sent to pharmacy, home meds and all side effects. IV discontinued to left arm. Patient left 2nd floor via WC escorted by male family member/friend to personal vehicle in route to his destination.
--- NOTE | 2025-02-21 08:50 | PC.NURSE ---
Discharge call back attempted, no answer, message left to return call. Unable to reach at this time.
== END 2025-02-17 11:55 | disposition home or self-care (01) | DRG 383 ==
LOC: CHSED 15:12 → CHS2ND 15:32
PROVIDERS: Nurse Practitioner Family; Admitting Provider Internal Medicine; Emergency Provider Family Medicine; PCP Family Medicine; Visit Provider Internal Medicine
DX: L03.115 Cellulitis of right lower limb (principal); B96.4 Proteus (mirabilis) (morganii) as the cause of diseases classified elsewhere; B95.4 Other streptococcus as the cause of diseases classified elsewhere; N17.9 Acute kidney failure, unspecified; I83.013 Varicose veins of right lower extremity with ulcer of ankle; L97.319 Non-pressure chronic ulcer of right ankle with unspecified severity; I11.0 Hypertensive heart disease with heart failure; I50.9 Heart failure, unspecified
CPT/HCPCS: 36415; 80048; 80053; 80202; 82565; 83605; 83735; 85025; 85027; 86140; 87040; 87070; 87075; 87186; 93971; 96365; 96366; 96367; 96372; 96375; 99285; A9270; G0378; G0379; J0692; J1650; J1938; J2470; J3373; J7030